=== PATIENT | male | born 1960 | race Asian ===

== ENCOUNTER 2018-01-07 15:01 | Inpatient (IN) | payer OTHER ==
[2018-01-07] MEDS ORDERED: ALBUTEROL SO4 8 GM HFA INHALER IH PRN (17:39)
[2018-01-07] MEDS ORDERED: IBUPROFEN 400 MG TABLET (FP) PO PRN (17:40)
[2018-01-07] MEDS ORDERED: NICOTINE POLACRILEX 2 MG GUM BC PRN (17:40)
[2018-01-07] MEDS ORDERED: guaiFENesin/D-METHORPHAN HB 10 ML UNIT-DOSE CUPS PO PRN (17:40)
[2018-01-07] MEDS ORDERED: MAG HYDROX/AL HYDROX/SIMETH 30 ML UNIT-DOSE CUP PO PRN (17:40)
[2018-01-07] MEDS ORDERED: ACETAMINOPHEN 325 MG TABLET (FP) PO PRN (17:40)
[2018-01-07] MEDS ORDERED: MAGNESIUM CITRATE 300 ML BOTTLE PO PRN (17:40)
[2018-01-07] MEDS ORDERED: MAGNESIUM HYDROX 2400MG/30ML ORAL SUSPENSION 30 ML CUP PO PRN (17:40)
[2018-01-07] MEDS ORDERED: MENTHOL/PHENOL 1 EACH UD MM PRN (17:40)
[2018-01-07] MEDS ORDERED: P-EPHED 60MG/TRIPROLIDI 2.5MG TABLET PO PRN (17:40)
[2018-01-07] MEDS ORDERED: LOPERAMIDE HCL 2 MG CAPSULE PO PRN (17:40)
[2018-01-07] MEDS ORDERED: ALBUTEROL SO4 0.083% IH SOL 2.5 MG/3 ML VIAL.NEB. NEB PRN (17:42)
--- NOTE | 2018-01-07 17:45 | HP ---
CIWA Score - CIWA Score Nausea/Vomitin-Mild Nausea/No Vomiting Muscle Tremors: 4-Moderate,w/Arms Extend Anxiety: 3 Agitation: 2 Paroxysmal Sweats: 2 Orientation: 0-Oriented Tacttile Disturbances: 1-Very Mild Itch/Numbness Auditory Disturbances: 0-None Visual Disturbances: 1-Very Mild Sensitivity Headache: 0-None Present CIWA-Ar Total Score: 14 Admission ROS [facility] - HPI Chief Complaint: alcohol withdrawal symptoms Allergies/Adverse Reactions: Allergies Allergy/AdvReac Type Severity Reaction Status Date / Time No Known Allergies Allergy Verified 09/08/15 10:51 History of Present Illness: 57 yo male with hx nicotine and alcohol is here seeking for detox and withdrawal symptoms. Last detox three years ago, does not recall the name of the facility. PMHX: asthma. Denies hx of seizures or blackouts. Denies suicidal / homicidal ideation. Reports no significant period of sobriety. Exam Limitations: No Limitations - Review of Systems Constitutional: Loss of Appetite, Changes in sleep, Weakness, Unexplained wgt Loss EENT: reports: Other (wears glasses for distance) Respiratory: reports: Wheezing Cardiac: reports: No Symptoms Reported GI: reports: Poor Appetite, Poor Fluid Intake : reports: No Symptoms Reported Musculoskeletal: reports: No Symptoms Reported Integumentary: reports: No Symptoms Reported Neuro: reports: Weakness Endocrine: reports: Increased Thirst Hematology: reports: No Symptoms Reported Psychiatric: reports: Orientated x3, Anxious Other Systems: Reviewed and Negative Patient History - Patient Medical History Hx Anemia: No Hx Asthma: Yes Hx Chronic Obstructive Pulmonary Disease (COPD): Yes Hx Cancer: No Hx Cardiac Disorders: No Hx Congestive Heart Failure: No Hx Hypertension: No Hx Hypercholesterolemia: No Hx Pacemaker: No HX Cerebrovascular Accident: No Hx Seizures: No Hx Dementia: No Hx Diabetes: No Hx Gastrointestinal Disorders: No Hx Liver Disease: No Hx Genitourinary Disorders: No Hx Sexually Transmitted Disorders: No Hx Renal Disease (ESRD): No Hx Thyroid Disease: No Hx Human Immunodeficiency Virus (HIV): No Hx Hepatitis C: No Hx Depression: No Hx Suicide Attempt: No Hx Bipolar Disorder: No Hx Schizophrenia: No - Patient Surgical History Past Surgical History: No - PPD History Previous Implant?: No Documented Results: Negative w/o proof Implanted On Prior [facility] Admission?: No PPD to be Administered?: Yes - Smoking Cessation Smoking history: Current every day smoker Have you smoked in the past 12 months: Yes Aproximately how many cigarettes per day: 10 Hx Chewing Tobacco Use: No Initiated information on smoking cessation: Yes 'Breaking Loose' booklet given: 01/07/18 - Substance & Tx. History Hx Alcohol Use: Yes Hx Substance Use: Yes Substance Use Type: Alcohol Hx Substance Use Treatment: Yes (Last detox three years ago, does not recall the name of the facility ) - Substances Abused Alcohol Route: Oral Frequency: Daily Amount used: 1 pint vodka Age of first use: 54 Date of Last Use: 01/07/18 Family Disease History - Family Disease History Family History: Unable to Obtain Admission Physical Exam [facility] - Physical General Appearance: Yes: Appropriately Dressed, Mild Distress, Alcohol on Breath , Thin, Tremorous, Sweating HEENTM: Yes: EOMI, Hearing grossly Normal, Normal ENT Inspection, Normocephalic , Normal Voice, KEITH, Pharynx Normal, Tm's normal Respiratory: Yes: Chest Non-Tender, No Respiratory Distress, No Accessory Muscle Use, Wheezing Neck: Yes: Within Normal Limits Breast: Yes: Breast Exam Deferred Cardiology: Yes: Regular Rhythm, Regular Rate Abdominal: Yes: Normal Bowel Sounds, Non Tender, Flat, Soft Genitourinary: Yes: Within Normal Limits Back: Yes: Normal Inspection Musculoskeletal: Yes: full range of Motion, Gait Steady, Pelvis Stable Extremities: Yes: Normal Capillary Refill, Normal Inspection, Normal Range of Motion, Non-Tender 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 NML intact, Fully Oriented, Alert, Motor Strength 5/5, Normal Response, Depressed Affect Integumentary: Yes: Normal Color, Warm, Diaphoresis Lymphatic: Yes: Within Normal Limits - Diagnostic (1) Alcohol dependence with withdrawal Current Visit: Yes Status: Acute (2) Nicotine dependence Current Visit: Yes Status: Acute (3) Asthma Current Visit: Yes Status: Chronic Qualifiers: Asthma severity: unspecified severity Asthma persistence: unspecified Asthma complication type: unspecified Qualified Code(s): J45.909 - Unspecified asthma, uncomplicated (4) Wheezing Current Visit: Yes Status: Acute Cleared for Admission S - Detox or Rehab S Level of Care: Medically Managed Detox Regimen/Protocol: Librium
[2018-01-07 17:46] VITALS: BMI 21.3
[2018-01-07] MEDS ORDERED: chlordiazePOXIDE HCL 25 MG CAPSULE PO ONE (18:15)
[2018-01-07] MEDS ORDERED: MELATONIN 5 MG TABLETS PO PRN (22:00)
[2018-01-07] MEDS: chlordiazePOXIDE HCL 25 MG CAPSULE PO SCH (22:22)
[2018-01-07] MEDS: THIAMINE HCL 100 MG TABLET (FP) PO SCH (22:22)
[2018-01-08 00:06] LABS: URINE APPEARANCE CLEAR; URINE BILIRUBIN NEGATIVE (<2.0 mg/dL); URINE COLOR YELLOW; URINE GLUCOSE (UA) NEGATIVE (NEGATIVE); URINE KETONE NEGATIVE (NEGATIVE); URINE LEUK ESTERASE NEGATIVE (NEGATIVE); URINE NITRITE NEGATIVE (NEGATIVE); URINE PROTEIN NEGATIVE (NEGATIVE); URINE UROBILINOGEN NEGATIVE mg/dL (0.2-1.0)
[2018-01-08] MEDS: chlordiazePOXIDE HCL 25 MG CAPSULE PO SCH ×4 (05:08→22:12)
[2018-01-08] MEDS ORDERED: ALBUTEROL SO4 2.5/IPRATROPIUM 0.5 INH SOL 3 ML VIAL.NEB. NEB ONE (09:04)
[2018-01-08] MEDS ORDERED: ALBUTEROL SO4 2.5/IPRATROPIUM 0.5 INH SOL 3 ML VIAL.NEB. NEB PRN (09:05)
[2018-01-08] MEDS: NICOTINE 14 MG/24 HOURS TOPICAL PATCH TD SCH (10:36)
[2018-01-08] MEDS: PRENATAL VITAMINS W/ FOLIC ACID TABLET (FP) PO SCH (10:36)
[2018-01-08 11:14] LABS: HEMATOCRIT 41.3 % (35.4-49); HEMOGLOBIN 13.9 GM/dL (11.7-16.9); MCH 35.2 pg (25.7-33.7); MCHC 33.7 g/dl (32.0-35.9); MEAN CELL VOLUME 104.5 fl (80-96); MEAN PLT VOLUME 9.9 fl (7.5-11.1); PLATELET COUNT 84 K/MM3 (134-434); RBC 3.95 M/mm3 (4.00-5.60); RDW 15.3 % (11.9-15.9); WHITE BLOOD COUNT 3.2 K/mm3 (4.0-10.0)
--- NOTE | 2018-01-08 11:26 | PN ---
[facility] CIWA - CIWA Score Nausea/Vomitin-No Nausea/No Vomiting Muscle Tremors: 5 Anxiety: 5 Agitation: 5 Paroxysmal Sweats: 1-Minimal Palms Moist Orientation: 0-Oriented Tacttile Disturbances: 0-None Auditory Disturbances: 0-None Visual Disturbances: 0-None Headache: 0-None Present CIWA-Ar Total Score: 16 S Progress Note (SOAP) Subjective: ANIETY,TREMORS,CHILLS,SOB/WHEEZING Objective: 01/08/18 11:22 Vital Signs 01/08/18 01/08/18 01/08/18 03:30 04:00 04:30 Temperature Pulse Rate 73 73 71 Respiratory 16 16 Rate Blood Pressure O2 Sat by Pulse Oximetry (%) 01/08/18 01/08/18 01/08/18 05:00 05:30 05:52 Temperature 98.1 F Pulse Rate 70 70 68 Respiratory 16 16 16 Rate Blood Pressure 136/82 O2 Sat by Pulse Oximetry (%) 01/08/18 01/08/18 01/08/18 06:00 06:30 07:00 Temperature Pulse Rate 68 65 68 Respiratory 16 18 18 Rate Blood Pressure O2 Sat by Pulse Oximetry (%) 01/08/18 01/08/18 01/08/18 07:30 08:00 08:28 Temperature Pulse Rate 68 70 72 Respiratory 18 18 18 Rate Blood Pressure O2 Sat by Pulse Oximetry (%) 01/08/18 01/08/18 01/08/18 09:00 09:08 09:30 Temperature Pulse Rate 76 93 H 80 Respiratory 18 18 Rate Blood Pressure O2 Sat by Pulse 94 L Oximetry (%) 01/08/18 10:41 Temperature 96.7 F L Pulse Rate 90 Respiratory 18 Rate Blood Pressure 124/75 O2 Sat by Pulse 94 Oximetry (%) Laboratory Tests 01/07/18 22:00 Urine Color Yellow Urine Appearance Clear Urine pH 7.0 Ur Specific [place] 1.012 Urine Protein Negative Urine Glucose (UA) Negative Urine Ketones Negative Urine Blood 1+ H Urine Nitrite Negative Urine Bilirubin Negative Urine Urobilinogen Negative Ur Leukocyte Esterase Negative Urine WBC (Auto) <1 Urine RBC (Auto) None UA NOTED OTHER LABS PENDING LUNGS:BILATERAL MODERATE WHEEZE WITH RHONCHI ALL [place] PULSE OX : 94% ROOM AIR Assessment: 01/08/18 11:23 WITHDRAWAL SX Plan: CONTINUE DETOX DUO NEB NEBULIZER TX DIRECTED, FIRST TX NOW GIVEN PULSE OX QID AND NEEDED
[2018-01-08] MEDS ORDERED: predniSONE 20 MG TABLET (UD) PO ONE ×2 (11:29→13:00)
[2018-01-08 11:31] LABS: CHLORIDE 102 mmol/L (98-107); POTASSIUM 3.4 mmol/L (3.5-5.1); SODIUM 145 mmol/L (136-145)
[2018-01-08 11:58] LABS: ALBUMIN 3.7 g/dl (3.4-5.0); ALK PHOS 74 U/L (45-117); ANION GAP 13 MMOL/L (8-16); BILIRUBIN,TOTAL 0.6 mg/dL (0.2-1.0); BLOOD UREA NITROGEN 10 mg/dL (7-18); CALCIUM 9.1 mg/dL (8.5-10.1); CO2 30 mmol/L (21-32); CREATININE 0.5 mg/dL (0.7-1.3); GLUCOSE,RANDOM 81 mg/dL (74-106); SGOT/AST 342 U/L (15-37); SGPT/ALT 211 U/L (12-78)
[2018-01-08] MEDS: chlordiazePOXIDE HCL 25 MG CAPSULE PO PRN (12:55)
[2018-01-08] MEDS: ALBUTEROL SO4 2.5/IPRATROPIUM 0.5 INH SOL 3 ML VIAL.NEB. NEB SCH ×3 (12:59→20:50)
--- NOTE | 2018-01-08 14:17 | CONSULT ---
[facility] Psychiatric Consult - Data Date of interview: 01/08/18 Admission source: [facility] Identifying data: Readmission to [facility] for this male seeking detox treatment on for alcohol dependence.Patient is ,a father of three ,domiciled and currently employed. Substance Abuse History: Discussed in this session.Patient confirms an extensive history of alcohol dependence.Smoking history: Current every day smoker. Have you smoked in the past 12 months: Yes. Aproximately how many cigarettes per day: 10. Hx Chewing Tobacco Use: No. Initiated information on smoking cessation: Yes. 'Breaking Loose' booklet given: 01/07/18. - Substance & Tx. History. Hx Alcohol Use: Yes. Hx Substance Use: Yes. Substance Use Type : Alcohol. Hx Substance Use Treatment: Yes (Last detox three years ago, does not recall the name of the facility ). - Substances Abused. Alcohol. Route : Oral. Frequency: Daily. Amount used: 1 pint vodka. Age of first use: 54. Date of Last Use: 01/07/18 Medical History: Bronchial asthma,antecedent of herniorraphy and a history of kidney stones. Psychiatric History: Patient denies. Physical/Sexual Abuse/Trauma History: No reported history of abuse. Additional Comment: No toxicology available on admission. Mental Status Exam - Mental Status Exam Alert and Oriented to: Time, Place, Person Cognitive Function: Good Patient Appearance: Well Groomed (thin habitus) Mood: Withdrawn, Anxious Affect: Mood Congruent, Constricted Patient Behavior: Sedated (shaking), Fatigued, Cooperative Speech Pattern: Delayed, Slurred Voice Loudness: Moderately Soft/Quiet Thought Process: Goal Oriented Thought Disorder: Not Present Hallucinations: Denies Suicidal Ideation: Denies Homicidal Ideation: Denies Insight/Judgement: Fair Sleep: Fair Appetite: Poor, Weight loss Muscle strength/Tone: Normal Gait/Station: Other (unsteady gait) Psychiatric Findings - Problem List (Berger 1, 2,3) (1) Alcohol dependence with withdrawal Current Visit: Yes Status: Acute (2) Nicotine dependence Current Visit: Yes Status: Acute Qualifiers: Nicotine product type: cigarettes Substance use status: in withdrawal Qualified Code(s): F17.213 - Nicotine dependence, cigarettes, with withdrawal - Initial Treatment Plan Initial Treatment Plan: Psychoeducation.Detoxification.Falls precautions.Observation.
--- NOTE | 2018-01-08 20:20 | EKG ---
Test Reason : Blood Pressure : / mmHG Vent. Rate : 069 BPM Atrial Rate : 069 BPM P-R Int : 168 ms QRS Dur : 096 ms QT Int : 428 ms P-R-T Axes : 000 131 104 degrees QTc Int : 458 ms SUSPECT ARM LEAD REVERSAL, INTERPRETATION ASSUMES NO REVERSAL NORMAL SINUS RHYTHM SEPTAL INFARCT , AGE UNDETERMINED LATERAL INFARCT , AGE UNDETERMINED ABNORMAL ECG NO PREVIOUS ECGS AVAILABLE Confirmed by AMPARO JANG MD ([id number]) on 01/08/2018 8:19:27 PM Referred By: Confirmed By:AMPARO JANG MD
[2018-01-08] MEDS ORDERED: cloNIDine HCL 0.1 MG TABLET PO ONE (21:13)
--- NOTE | 2018-01-08 21:26 | PN ---
S Progress Note Note: Vital Signs Temperature 98.8 F 01/08/18 18:02 Pulse Rate 90 01/08/18 19:00 Respiratory Rate 20 01/08/18 19:00 Blood Pressure 161/99 01/08/18 21:16 O2 Sat by Pulse Oximetry (%) 95 01/08/18 13:10 clonidine 0.1 mg ordered increase fluids continue to monitor
--- NOTE | 2018-01-08 21:59 | PN ---
[facility] Progress Note Note: Potassium 3.4 repeat potassium in AM continue to monitor
[2018-01-08] MEDS: THIAMINE HCL 100 MG TABLET (FP) PO SCH (22:13)
[2018-01-09] MEDS: chlordiazePOXIDE HCL 25 MG CAPSULE PO SCH ×3 (05:17→17:31)
[2018-01-09] MEDS: NICOTINE 14 MG/24 HOURS TOPICAL PATCH TD SCH (10:27)
[2018-01-09] MEDS: PRENATAL VITAMINS W/ FOLIC ACID TABLET (FP) PO SCH (10:27)
[2018-01-09] MEDS: ALBUTEROL SO4 2.5/IPRATROPIUM 0.5 INH SOL 3 ML VIAL.NEB. NEB SCH ×4 (10:29→20:40)
[2018-01-09] MEDS ORDERED: predniSONE 20 MG TABLET (UD) PO ONE (12:20)
[2018-01-09] MEDS ORDERED: POTASSIUM CHLORIDE TABS 20 MEQ TABLET.ER (FP) PO ONE (12:21)
--- NOTE | 2018-01-09 12:23 | PN ---
S CIWA - CIWA Score Nausea/Vomitin-No Nausea/No Vomiting Muscle Tremors: 4-Moderate,w/Arms Extend Anxiety: 4-Mod. Anxious/Guarded Agitation: 3 Paroxysmal Sweats: 1-Minimal Palms Moist Orientation: 0-Oriented Tacttile Disturbances: 0-None Auditory Disturbances: 0-None Visual Disturbances: 0-None Headache: 0-None Present CIWA-Ar Total Score: 12 S Progress Note (SOAP) Subjective: ANXIETY,TREMORS LESS THAN PREVIOUS DAY, DENIES SOB THIS MORNING. SAW PT EATING BREAKFATS AT BEDSIDE. NAD. Objective: 01/09/18 12:18 Vital Signs 01/09/18 01/09/18 01/09/18 06:15 06:30 11:07 Temperature 97.6 F 96.9 F L Pulse Rate 76 68 Respiratory 18 18 16 Rate Blood Pressure 118/78 130/79 Laboratory Tests 01/07/18 01/08/18 01/08/18 22:00 07:16 07:16 WBC 3.2 L RBC 3.95 L Hgb 13.9 Hct 41.3 MCV 104.5 H MCH 35.2 H MCHC 33.7 RDW 15.3 Plt Count 84 L D MPV 9.9 D Manual Slide Review Platelet Comment Giant platelets Sodium 145 Potassium 3.4 L Chloride 102 Carbon Dioxide 30 Anion Gap 13 BUN 10 Creatinine 0.5 L Creat Clearance w eGFR > 60 Random Glucose 81 Calcium 9.1 Total Bilirubin 0.6 AST 342 H D ALT 211 H D Alkaline Phosphatase 74 Total Protein 7.0 Albumin 3.7 Urine Color Yellow Urine Appearance Clear Urine pH 7.0 Ur Specific [place] 1.012 Urine Protein Negative Urine Glucose (UA) Negative Urine Ketones Negative Urine Blood 1+ H Urine Nitrite Negative Urine Bilirubin Negative Urine Urobilinogen Negative Ur Leukocyte Esterase Negative Urine WBC (Auto) <1 Urine RBC (Auto) None RPR Titer 01/08/18 01/09/18 07:16 07:00 WBC RBC Hgb Hct MCV MCH MCHC RDW Plt Count MPV Manual Slide Review Platelet Comment Sodium Potassium 3.5 Chloride Carbon Dioxide Anion Gap BUN Creatinine Creat Clearance w eGFR Random Glucose Calcium Total Bilirubin AST ALT Alkaline Phosphatase Total Protein Albumin Urine Color Urine Appearance Urine pH Ur Specific [place] Urine Protein Urine Glucose (UA) Urine Ketones Urine Blood Urine Nitrite Urine Bilirubin Urine Urobilinogen Ur Leukocyte Esterase Urine WBC (Auto) Urine RBC (Auto) RPR Titer Nonreactive K+ =3.4 LUNGS: CLEAR TO A/P Assessment: 01/09/18 12:18 WITHDRAWAL SX BORDERLINE HYPOKALEMIA Plan: CONTINUE DETOX REPEAT CBC AND CMP;INR IN AM. KDUR 20 MEQ PO BID
[2018-01-09] MEDS: chlordiazePOXIDE HCL 25 MG CAPSULE PO PRN ×2 (14:13→20:43)
[2018-01-09] MEDS: THIAMINE HCL 100 MG TABLET (FP) PO SCH (22:18)
[2018-01-09] MEDS: POTASSIUM CHLORIDE TABS 20 MEQ TABLET.ER (FP) PO SCH (22:18)
[2018-01-09] MEDS: chlordiazePOXIDE 5 MG CAPSULE PO SCH (22:18)
[2018-01-10] MEDS: chlordiazePOXIDE 5 MG CAPSULE PO SCH ×2 (05:40→10:33)
[2018-01-10 10:07] LABS: HEMATOCRIT 42.7 % (35.4-49); HEMOGLOBIN 14.2 GM/dL (11.7-16.9); MCHC 33.3 g/dl (32.0-35.9); MEAN CELL VOLUME 104.9 fl (80-96); MEAN PLT VOLUME 10.7 fl (7.5-11.1); PLATELET COUNT 81 K/MM3 (134-434); RBC 4.07 M/mm3 (4.00-5.60); RDW 14.9 % (11.9-15.9); WHITE BLOOD COUNT 6.2 K/mm3 (4.0-10.0)
[2018-01-10 10:15] LABS: CALCIUM 11.1 mg/dL (8.5-10.1); CHLORIDE 100 mmol/L (98-107); POTASSIUM 4.2 mmol/L (3.5-5.1); SODIUM 139 mmol/L (136-145)
[2018-01-10 10:16] LABS: INR 0.94 (0.83-1.09); PROTHROMBIN TIME (PATIENT) 10.6 SEC (9.7-13.0)
[2018-01-10 10:22] LABS: ALBUMIN 4.4 g/dl (3.4-5.0); ALK PHOS 89 U/L (45-117); ANION GAP 10 MMOL/L (8-16); BILIRUBIN,TOTAL 0.9 mg/dL (0.2-1.0); BLOOD UREA NITROGEN 11 mg/dL (7-18); CO2 29 mmol/L (21-32); CREATININE 0.6 mg/dL (0.7-1.3); GLUCOSE,RANDOM 88 mg/dL (74-106); SGOT/AST 354 U/L (15-37); SGPT/ALT 264 U/L (12-78); TOT PROT 8.3 g/dl (6.4-8.2)
[2018-01-10] MEDS: ALBUTEROL SO4 2.5/IPRATROPIUM 0.5 INH SOL 3 ML VIAL.NEB. NEB SCH ×3 (10:34→22:55)
[2018-01-10] MEDS: PRENATAL VITAMINS W/ FOLIC ACID TABLET (FP) PO SCH (10:34)
[2018-01-10] MEDS: POTASSIUM CHLORIDE TABS 20 MEQ TABLET.ER (FP) PO SCH (10:34)
[2018-01-10] MEDS: NICOTINE 14 MG/24 HOURS TOPICAL PATCH TD SCH (10:34)
--- NOTE | 2018-01-10 11:50 | PN ---
S Progress Note (SOAP) Subjective: TREMORS, ANXIETY, IRRITABILITY. DENIES SOB. PT REPORTS FATIGUE AND SLIGHT UNSTABLE GAIT FROM "LIBRIUM". PT WAS VERY ANXIOUS TO LEAVE TREATMENT THIS MORNING STATING HIS IS WAITING IN THE PARKING LOT TO PICK HIM UP. ON SEVERAL OCCASIONS HE TRIED TO EXIT THE UNIT AND TRIGGERED THE BACK ALARM DOOR ON ONE INSTANT. PT WAS ENCOURAGED TO STAY TILL TREATMENT IS OVER TOMORROW. FORMATION FRACTURING OPERATOR, TOPHER ANDREA GOT AHOLD OF THE WHO IS NOT IN SUPPORT OF PATIENT LEAVING TODAY PREMATURELY. THIS ENVIRONMENTAL TEST TECHNICIAN SPOKE TO PT'S WHO WILL PICK PATIENT UP IF AND WHEN DISCHARGED IN THE MORNING. PT WILL FOLLOW UP WITH HIS PRIMARY CARE PROVIDER, DR. DAVILA FOR MEDICAL MANAGEMENT. Objective: 01/10/18 11:50 Vital Signs 01/10/18 01/10/18 06:17 09:11 Temperature 97.3 F L 97.1 F L Pulse Rate 84 99 H Respiratory 16 18 Rate Blood Pressure 136/80 134/100 Laboratory Tests 01/07/18 01/08/18 01/08/18 22:00 07:16 07:16 WBC 3.2 L RBC 3.95 L Hgb 13.9 Hct 41.3 MCV 104.5 H MCH 35.2 H MCHC 33.7 RDW 15.3 Plt Count 84 L D MPV 9.9 D Manual Slide Review Platelet Comment Giant platelets PT with INR INR Sodium 145 Potassium 3.4 L Chloride 102 Carbon Dioxide 30 Anion Gap 13 BUN 10 Creatinine 0.5 L Creat Clearance w eGFR > 60 Random Glucose 81 Calcium 9.1 Total Bilirubin 0.6 AST 342 H D ALT 211 H D Alkaline Phosphatase 74 Total Protein 7.0 Albumin 3.7 Urine Color Yellow Urine Appearance Clear Urine pH 7.0 Ur Specific [place] 1.012 Urine Protein Negative Urine Glucose (UA) Negative Urine Ketones Negative Urine Blood 1+ H Urine Nitrite Negative Urine Bilirubin Negative Urine Urobilinogen Negative Ur Leukocyte Esterase Negative Urine WBC (Auto) <1 Urine RBC (Auto) None RPR Titer 01/08/18 01/09/18 01/10/18 07:16 07:00 07:00 WBC RBC Hgb Hct MCV MCH MCHC RDW Plt Count MPV Manual Slide Review Platelet Comment PT with INR INR Sodium 139 Potassium 3.5 4.2 Chloride 100 Carbon Dioxide 29 Anion Gap 10 BUN 11 Creatinine 0.6 L Creat Clearance w eGFR > 60 Random Glucose 88 Calcium 11.1 H D Total Bilirubin 0.9 AST 354 H ALT 264 H D Alkaline Phosphatase 89 D Total Protein 8.3 H Albumin 4.4 Urine Color Urine Appearance Urine pH Ur Specific [place] Urine Protein Urine Glucose (UA) Urine Ketones Urine Blood Urine Nitrite Urine Bilirubin Urine Urobilinogen Ur Leukocyte Esterase Urine WBC (Auto) Urine RBC (Auto) RPR Titer Nonreactive 01/10/18 01/10/18 07:00 07:00 WBC 6.2 RBC 4.07 Hgb 14.2 Hct 42.7 MCV 104.9 H MCH 35.0 H MCHC 33.3 RDW 14.9 Plt Count 81 L MPV 10.7 Manual Slide Review Platelet Comment PT with INR 10.60 INR 0.94 Sodium Potassium Chloride Carbon Dioxide Anion Gap BUN Creatinine Creat Clearance w eGFR Random Glucose Calcium Total Bilirubin AST ALT Alkaline Phosphatase Total Protein Albumin Urine Color Urine Appearance Urine pH Ur Specific [place] Urine Protein Urine Glucose (UA) Urine Ketones Urine Blood Urine Nitrite Urine Bilirubin Urine Urobilinogen Ur Leukocyte Esterase Urine WBC (Auto) Urine RBC (Auto) RPR Titer LUNGS:CLEAR TO AUSCULTATE-NO WHEEZE OR RHONCHI NOTED. Assessment: 01/10/18 11:50 WITHDRAWAL SX Plan: CONTINUE DETOX INCREASE PO FLUIDS AMMONIA LEVEL TODAY
[2018-01-10] MEDS ORDERED: predniSONE 10 MG TABLET (UD) PO ONE (12:00)
--- NOTE | 2018-01-10 14:38 | PN ---
[facility] Progress Note Note: REPEAT LABS K+ =4.2 CORRECTED AMMONIA LEVEL 18 WNL LIVER ENZYMES NOT IMPROVED. COPY OF LAB GIVEN TO PATIENT FOR HIS PMD, DR ROXANNA V.
[2018-01-10] MEDS: THIAMINE HCL 100 MG TABLET (FP) PO SCH (22:55)
[2018-01-10] MEDS ORDERED: chlordiazePOXIDE HCL 10 MG CAPSULE PO SCH (23:00)
[2018-01-11 09:32] VITALS: BP 109/75; PULSE 84; TEMP 97.4
--- NOTE | 2018-01-11 20:18 | PN ---
[facility] Progress Note (SOAP) Subjective: Tremors noted on patient. Patient denies any other current withdrawal symptoms at this time. Objective: PATIENT A & O X 3, OBSERVED AMBULATING ON UNIT. NO ACUTE DISTRESS. Vital Signs Temperature 97.4 F L 01/11/18 09:31 Pulse Rate 84 01/11/18 09:31 Respiratory Rate 18 01/11/18 09:31 Blood Pressure 109/75 01/11/18 09:31 O2 Sat by Pulse Oximetry (%) 95 01/08/18 13:10 Laboratory Tests 01/07/18 01/08/18 01/08/18 22:00 07:16 07:16 WBC 3.2 L RBC 3.95 L Hgb 13.9 Hct 41.3 MCV 104.5 H MCH 35.2 H MCHC 33.7 RDW 15.3 Plt Count 84 L D MPV 9.9 D Manual Slide Review Platelet Comment Giant platelets PT with INR INR Sodium 145 Potassium 3.4 L Chloride 102 Carbon Dioxide 30 Anion Gap 13 BUN 10 Creatinine 0.5 L Creat Clearance w eGFR > 60 Random Glucose 81 Calcium 9.1 Total Bilirubin 0.6 AST 342 H D ALT 211 H D Alkaline Phosphatase 74 Ammonia Total Protein 7.0 Albumin 3.7 Urine Color Yellow Urine Appearance Clear Urine pH 7.0 Ur Specific [place] 1.012 Urine Protein Negative Urine Glucose (UA) Negative Urine Ketones Negative Urine Blood 1+ H Urine Nitrite Negative Urine Bilirubin Negative Urine Urobilinogen Negative Ur Leukocyte Esterase Negative Urine WBC (Auto) <1 Urine RBC (Auto) None RPR Titer 01/08/18 01/09/18 01/10/18 07:16 07:00 07:00 WBC RBC Hgb Hct MCV MCH MCHC RDW Plt Count MPV Manual Slide Review Platelet Comment PT with INR INR Sodium 139 Potassium 3.5 4.2 Chloride 100 Carbon Dioxide 29 Anion Gap 10 BUN 11 Creatinine 0.6 L Creat Clearance w eGFR > 60 Random Glucose 88 Calcium 11.1 H D Total Bilirubin 0.9 AST 354 H ALT 264 H D Alkaline Phosphatase 89 D Ammonia Total Protein 8.3 H Albumin 4.4 Urine Color Urine Appearance Urine pH Ur Specific [place] Urine Protein Urine Glucose (UA) Urine Ketones Urine Blood Urine Nitrite Urine Bilirubin Urine Urobilinogen Ur Leukocyte Esterase Urine WBC (Auto) Urine RBC (Auto) RPR Titer Nonreactive 01/10/18 01/10/18 01/10/18 07:00 07:00 11:30 WBC 6.2 RBC 4.07 Hgb 14.2 Hct 42.7 MCV 104.9 H MCH 35.0 H MCHC 33.3 RDW 14.9 Plt Count 81 L MPV 10.7 Manual Slide Review Platelet Comment PT with INR 10.60 INR 0.94 Sodium Potassium Chloride Carbon Dioxide Anion Gap BUN Creatinine Creat Clearance w eGFR Random Glucose Calcium Total Bilirubin AST ALT Alkaline Phosphatase Ammonia 18.0 Total Protein Albumin Urine Color Urine Appearance Urine pH Ur Specific [place] Urine Protein Urine Glucose (UA) Urine Ketones Urine Blood Urine Nitrite Urine Bilirubin Urine Urobilinogen Ur Leukocyte Esterase Urine WBC (Auto) Urine RBC (Auto) RPR Titer LABS NOTED. 01/11/18 20:16 Assessment: 01/11/18 20:17 COMPLETION OF DETOX REGIMEN. Plan: PATIENT SCHEDULED FOR DISCHARGE FROM DETOX UNIT TODAY.
--- NOTE | 2018-01-11 20:22 | DS ---
[facility] Detox Discharge Summary Admission Date: 01/07/18 Discharge Date: 01/11/18 - History Present History: Alcohol Dependence Additional Comments: PATIENT GONIG HOME, ADVISED TO CONSIDER LOCAL 12-STEP/AA OUTPATIENT SUPPORT GROUPS FOR AFTERCARE. COPIES OF ALL LABS DRAWN WHILE ADMITTED FOR DETOX GIVEN TO PATIENT PRIOR TO TIME OF DISCHARGE FROM DETOX UNIT. PATIENT ADVISED TO FOLLOW -UP WITH MEDICAL PROVIDER DR. DAVILA AFTER DISCHARGE FROM DETOX FOR FOLLOW-UP MEDICAL EVALUATION. PATIENT WAS DISCHARGED FROM DETOX UNIT IN STABLE MEDICAL CONDITION. PATIENT WAS ESCORTED BY [facility] MEDICAL STAFF MEMBER DIRECTLY DOWN TO [facility], WHERE PATIENT WAS PICKED UP BY HIS . Pertinent Past History: Asthma, C.O.P.D., Nicotine Dependence, Hypokalemia. - Physical Exam Results Vital Signs: Vital Signs Temperature 97.4 F L 01/11/18 09:31 Pulse Rate 84 01/11/18 09:31 Respiratory Rate 18 01/11/18 09:31 Blood Pressure 109/75 01/11/18 09:31 O2 Sat by Pulse Oximetry (%) 95 01/08/18 13:10 Pertinent Admission Physical Exam Findings: WITHDRAWAL SYMPTOMS. Laboratory Tests 01/07/18 01/08/18 01/08/18 22:00 07:16 07:16 WBC 3.2 L RBC 3.95 L Hgb 13.9 Hct 41.3 MCV 104.5 H MCH 35.2 H MCHC 33.7 RDW 15.3 Plt Count 84 L D MPV 9.9 D Manual Slide Review Platelet Comment Giant platelets PT with INR INR Sodium 145 Potassium 3.4 L Chloride 102 Carbon Dioxide 30 Anion Gap 13 BUN 10 Creatinine 0.5 L Creat Clearance w eGFR > 60 Random Glucose 81 Calcium 9.1 Total Bilirubin 0.6 AST 342 H D ALT 211 H D Alkaline Phosphatase 74 Ammonia Total Protein 7.0 Albumin 3.7 Urine Color Yellow Urine Appearance Clear Urine pH 7.0 Ur Specific [place] 1.012 Urine Protein Negative Urine Glucose (UA) Negative Urine Ketones Negative Urine Blood 1+ H Urine Nitrite Negative Urine Bilirubin Negative Urine Urobilinogen Negative Ur Leukocyte Esterase Negative Urine WBC (Auto) <1 Urine RBC (Auto) None RPR Titer 01/08/18 01/09/18 01/10/18 07:16 07:00 07:00 WBC RBC Hgb Hct MCV MCH MCHC RDW Plt Count MPV Manual Slide Review Platelet Comment PT with INR INR Sodium 139 Potassium 3.5 4.2 Chloride 100 Carbon Dioxide 29 Anion Gap 10 BUN 11 Creatinine 0.6 L Creat Clearance w eGFR > 60 Random Glucose 88 Calcium 11.1 H D Total Bilirubin 0.9 AST 354 H ALT 264 H D Alkaline Phosphatase 89 D Ammonia Total Protein 8.3 H Albumin 4.4 Urine Color Urine Appearance Urine pH Ur Specific [place] Urine Protein Urine Glucose (UA) Urine Ketones Urine Blood Urine Nitrite Urine Bilirubin Urine Urobilinogen Ur Leukocyte Esterase Urine WBC (Auto) Urine RBC (Auto) RPR Titer Nonreactive 01/10/18 01/10/18 01/10/18 07:00 07:00 11:30 WBC 6.2 RBC 4.07 Hgb 14.2 Hct 42.7 MCV 104.9 H MCH 35.0 H MCHC 33.3 RDW 14.9 Plt Count 81 L MPV 10.7 Manual Slide Review Platelet Comment PT with INR 10.60 INR 0.94 Sodium Potassium Chloride Carbon Dioxide Anion Gap BUN Creatinine Creat Clearance w eGFR Random Glucose Calcium Total Bilirubin AST ALT Alkaline Phosphatase Ammonia 18.0 Total Protein Albumin Urine Color Urine Appearance Urine pH Ur Specific [place] Urine Protein Urine Glucose (UA) Urine Ketones Urine Blood Urine Nitrite Urine Bilirubin Urine Urobilinogen Ur Leukocyte Esterase Urine WBC (Auto) Urine RBC (Auto) RPR Titer LABS NOTED. - Treatment Hospital Course: Detox Protocol Followed, Detoxed Safely, Responded well, Discharged Condition Good Patient has Accepted a Rehab Referral to: PATIENT ADVISED TO CONSIDER LOCAL 12- STEP/AA OUTPATIENT SUPPORT GROUPS. - Medication Discharge Medications: Ambulatory Orders Ipratropium/Albuterol Sulfate [Combivent Respimat Inhal [place]] 4 gm IH BID 09/07 Albuterol Sulfate Inhaler - [Ventolin Hfa Inhaler -] 2 inh PO Q4H PRN #1 inhaler 01/11/18 - Diagnosis (1) Alcohol dependence with uncomplicated withdrawal Status: Acute (2) Asthma Status: Acute Qualifiers: Asthma severity: mild intermittent Asthma complication type: uncomplicated Qualified Code(s): J45.20 - Mild intermittent asthma, uncomplicated (3) Hypokalemia Status: Acute (4) Nicotine dependence Status: Acute Qualifiers: Nicotine product type: cigarettes Substance use status: uncomplicated Qualified Code(s): F17.210 - Nicotine dependence, cigarettes, uncomplicated (5) Wheezing Status: Acute (6) COPD (chronic obstructive pulmonary disease) Status: Chronic Qualifiers: COPD type: COPD with acute exacerbation Qualified Code(s): J44.1 - Chronic obstructive pulmonary disease with (acute) exacerbation - AMA Did Patient Leave Against Medical Advice: No
== END 2018-01-11 09:38 | disposition home or self-care (01) | DRG 897 ==
LOC: YASAS 15:01 → Y3N 17:50 → MERGE 17:50
PROVIDERS: ADMIT Surgery; ATTEND Surgery
PROC: HZ2ZZZZ Detoxification Services for Substance Abuse Treatment (ICD-10-PCS; principal; 2018-01-07)
DX: F10.230 Alcohol dependence with withdrawal, uncomplicated (principal); J44.1 Chronic obstructive pulmonary disease with (acute) exacerbation; F17.210 Nicotine dependence, cigarettes, uncomplicated; J45.20 Mild intermittent asthma, uncomplicated; E87.6 Hypokalemia
CPT/HCPCS: 36415; 80053; 81003; 81015; 82140; 84132; 85027; 85610; 86593; 93005; 93010; 94640; J0735; J7620

== ENCOUNTER 2018-08-11 19:17 | Emergency (ER) | payer OTHER ==
[2018-08-11 19:42] VITALS: BP 138/98; BMI 21.3
--- NOTE | 2018-08-11 22:21 | PDOC ---
*Physical Exam - Vital Signs Last Vital Signs Temp Pulse Resp BP Pulse Ox 138/98 98 08/11/18 19:38 08/11/18 19:38 Medical Decision Making - Medical Decision Making 08/11/18 22:20 Patient seen by the advanced practice provider under my direct supervision. Ancillary testing reviewed as necessary. I agree with plan as outlined by the advanced practice provider. *DC/Admit/Observation/Transfer Diagnosis at time of Disposition: Alcohol abuse - Discharge Dispostion Disposition: HOME - Referrals - Patient Instructions Printed Discharge Instructions: DI for Alcohol Abuse - Post Discharge Activity
[2018-08-11] MEDS ORDERED: chlordiazePOXIDE HCL 25 MG CAPSULE PO ONE (22:37)
--- NOTE | 2018-08-11 22:37 | PDOC ---
History of Present Illness - General Chief Complaint: Alcohol intoxication Stated Complaint: ALCOHOL DETOX Time Seen by Provider: 08/11/18 22:19 History Source: Patient - History of Present Illness Initial Comments: 08/11/18 22:28 57 year old male history of alcoholism relapsed and has been drinking for the last 6 months. patient reports drinking karoline ay 5pm. no slurred speech , no tremors noted. 08/11/18 22:38 Past History - Past Medical History Allergies/Adverse Reactions: Allergies Allergy/AdvReac Type Severity Reaction Status Date / Time No Known Allergies Allergy Verified 09/08/15 20:32 Home Medications: Ambulatory Orders Ipratropium/Albuterol Sulfate [Combivent Respimat Inhal [place]] 4 gm IH BID 09/07 Albuterol Sulfate Inhaler - [Ventolin Hfa Inhaler -] 2 inh PO Q4H PRN #1 inhaler 01/11/18 Anemia: No Asthma: Yes Cancer: No Cardiac Disorders: No CVA: No COPD: Yes CHF: No Dementia: No Diabetes: No GI Disorders: No Disorders: No HTN: No Hypercholesterolemia: No Kidney Stones: Yes (Tx in 2016) Liver Disease: No Seizures: No Thyroid Disease: No - Surgical History Abdominal Surgery: Yes (HERNIA REPAIR 10 YRS AGO) Appendectomy: No Cardiac Surgery: No Cholecystectomy: No Lung Surgery: No Neurologic Surgery: No Orthopedic Surgery: No - Reproductive History Testicular Surgery: No - Suicide/Smoking/Psychosocial Hx Smoking History: Current every day smoker Have you smoked in the past 12 months: Yes Number of Cigarettes Smoked Daily: 10 Information on smoking cessation initiated: No 'Breaking Loose' booklet given: 01/07/18 Hx Alcohol Use: Yes Drug/Substance Use Hx: No Substance Use Type: Alcohol Hx Substance Use Treatment: Yes (Last detox three years ago, does not recall the name of the facility ) Review of Systems - Review of Systems Able to Perform ROS?: Yes Is the patient limited Amharic proficient: No Constitutional: No: Symptoms Reported, See HPI, Chills, Diaphoresis, Fever, Loss of Appetite, Malaise, Night Sweats, Weakness, Weight Stable, Unintentional Wgt. Loss, Unexplained wgt Loss, Other Neurological: No: Symptoms reported, See HPI, Headache, Numbness, Paresthesia, Pre-Existing Deficit, Seizure, Tingling, Tremors, Weakness, Unsteady Gait, Ataxia, Dizziness, Other Psychiatric: No: Anxiety, Depression, Frequent Crying, Stressors, Sleep Pattern Change, Emotional Problems, Mood Swings, Change in Appetite, Other *Physical Exam - Vital Signs Last Vital Signs Temp Pulse Resp BP Pulse Ox 138/98 98 08/11/18 19:38 08/11/18 19:38 - Physical Exam General Appearance: Yes: Appropriately Dressed Respiratory/Chest: positive: Lungs Clear, Normal Breath Sounds Cardiovascular: positive: Regular Rhythm, Regular Rate. negative: Tachycardia Gastrointestinal/Abdominal: positive: Normal Bowel Sounds, Soft Neurologic: positive: Fully Oriented, Alert, Normal Mood/Affect, Other (no tremors) Medical Decision Making - Medical Decision Making 08/11/18 22:39 A: called [facility] detox. no bed available. patient given option to wait for detox in the am. patient refused. patient also refused librium. reports that he will go there in the morning. *DC/Admit/Observation/Transfer Diagnosis at time of Disposition: Alcohol abuse - Discharge Dispostion Disposition: HOME - Referrals - Patient Instructions Printed Discharge Instructions: DI for Alcohol Abuse - Post Discharge Activity
[2018-08-11] MEDS ORDERED: chlordiazePOXIDE HCL 25 MG CAPSULE ONE (22:42)
== END 2018-08-11 22:50 | disposition home or self-care (01) ==
LOC: JER 19:17
DX: F10.10 Alcohol abuse, uncomplicated (principal); J44.9 Chronic obstructive pulmonary disease, unspecified; J45.909 Unspecified asthma, uncomplicated
CPT/HCPCS: 99282-25

== ENCOUNTER 2018-08-12 14:30 | Inpatient (IN) | payer OTHER ==
[2018-08-12 17:12] VITALS: BMI 19.0
--- NOTE | 2018-08-12 17:24 | HP ---
CIWA Score Nausea/Vomitin-Mild Nausea/No Vomiting Muscle Tremors: 2 Anxiety: 1-Mildly Anxious Agitation: 1-Slight > Activity Paroxysmal Sweats: 2 Orientation: 3-Disoriented Date>2 days Tacttile Disturbances: 1-Very Mild Itch/Numbness Auditory Disturbances: 1-Very Mild Visual Disturbances: 1-Very Mild Sensitivity Headache: 1-Very Mild CIWA-Ar Total Score: 14 - Admission Criteria OASAS Guidelines: Admission for Medically Managed Detox: Requires at least one of the followin. CIWA greater than 12 2. Seizures within the past 24 hours 3. Delirium tremens within the past 24 hours 4. Hallucinations within the past 24 hours 5. Acute intervention needed for co occurring medical disorder 6. Acute intervention needed for co occurring psychiatric disorder 7. Severe withdrawal that cannot be handled at a lower level of care (continued vomiting, continued diarrhea, abnormal vital signs) requiring intravenous medication and/or fluids 8. Admission ROS S - [facility] Chief Complaint: WITHDRAWAL SYMPTOMS Allergies/Adverse Reactions: Allergies Allergy/AdvReac Type Severity Reaction Status Date / Time No Known Allergies Allergy Verified 09/08/15 20:32 History of Present Illness: 57 Y.O. MAN WITH AN EXTENSIVE HISTORY OF ALCOHOL DEPENDENCE IS HERE SEEKING DETOX SERVICES. HE WAS LAST ADMITTED HERE FOR DETOX ON 12/2017. HE WAS DISCHARGED FROM [facility] ON 08/10/18 FOR ETOH INTOXICATION. DOES NOT HAVE A SIGNIFICANT PERIOD OF SOBRIETY. Exam Limitations: No Limitations - Ebola screening Have you traveled outside of the country in the last 21 days: No Have you had contact with anyone from an Ebola affected area: No Have you been sick,other than usual withdrawal symptoms: No Do you have a fever: No - Review of Systems Constitutional: Loss of Appetite, Unexplained wgt Loss EENT: reports: Blurred Vision Respiratory: reports: Shortness of Breath Cardiac: reports: No Symptoms Reported GI: reports: No Symptoms Reported : reports: No Symptoms Reported Musculoskeletal: reports: No Symptoms Reported Integumentary: reports: No Symptoms Reported Neuro: reports: No Symptoms reported Endocrine: reports: No Symptoms Reported Hematology: reports: No Symptoms Reported Psychiatric: reports: Mood/Affect Appropiate Other Systems: Reviewed and Negative Patient History - Patient Medical History Hx Anemia: No Hx Asthma: Yes Hx Chronic Obstructive Pulmonary Disease (COPD): Yes Hx Cancer: No Hx Cardiac Disorders: No Hx Congestive Heart Failure: No Hx Hypertension: No Hx Hypercholesterolemia: No Hx Pacemaker: No HX Cerebrovascular Accident: No Hx Seizures: No Hx Dementia: No Hx Diabetes: No Hx Gastrointestinal Disorders: No Hx Liver Disease: No Hx Genitourinary Disorders: No Hx Sexually Transmitted Disorders: No Hx Renal Disease (ESRD): No Hx Thyroid Disease: No Hx Human Immunodeficiency Virus (HIV): No Hx Hepatitis C: No Hx Depression: No Hx Suicide Attempt: No Hx Bipolar Disorder: No Hx Schizophrenia: No - Patient Surgical History Past Surgical History: No Hx Neurologic Surgery: No Hx Cataract Extraction: No Hx Cardiac Surgery: No Hx Lung Surgery: No Hx Breast Surgery: No Hx Breast Biopsy: No Hx Abdominal Surgery: Yes (HERNIA REPAIR 10 YRS AGO) Hx Appendectomy: No Hx Cholecystectomy: No Hx Genitourinary Surgery: No Hx Section: No Hx Orthopedic Surgery: No Anesthesia Reaction: No - PPD History Previous Implant?: Yes Documented Results: Negative w/proof Implanted On Prior [facility] Admission?: Yes Date: 01/09/18 Results: 0 PPD to be Administered?: No - Reproductive History Patient is a Female of Child Bearing Age (11 -55 yrs old): No - Smoking Cessation Smoking history: Current every day smoker Have you smoked in the past 12 months: Yes Aproximately how many cigarettes per day: 10 Hx Chewing Tobacco Use: No Initiated information on smoking cessation: Yes 'Breaking Loose' booklet given: 08/12/18 - Substance & Tx. History Hx Alcohol Use: Yes Hx Substance Use: No Substance Use Type: Alcohol Hx Substance Use Treatment: Yes (DETOX:12/2017) - Substances Abused Alcohol Route: Oral Frequency: Daily Amount used: ABDOULAYE 300ML Age of first use: 47 Date of Last Use: 08/12/18 Family Disease History - Family Disease History Family Disease History: Respiratory: Father (ASTHMA), Mother (ASTHMA) Admission Physical Exam [facility] - Vital Signs Vital Signs: Vital Signs - 24 hr 08/12/18 17:05 Temperature 96.2 F L Pulse Rate 83 Respiratory 20 Rate Blood Pressure 130/92 - Physical General Appearance: Yes: Disheveled HEENTM: Yes: Normocephalic, Normal Voice Respiratory: Yes: Chest Non-Tender, Lungs Clear, Normal Breath Sounds, No Respiratory Distress, No Accessory Muscle Use Neck: Yes: No masses,lesions,Nodules Breast: Yes: Breast Exam Deferred Cardiology: Yes: Regular Rhythm, Regular Rate Abdominal: Yes: Normal Bowel Sounds, Non Tender Genitourinary: Yes: Other (NO COMPLAINTS REPORTED) Musculoskeletal: Yes: full range of Motion, Gait Steady Extremities: Yes: Normal Capillary Refill, Normal Inspection Neurological: Yes: Alert, Normal Mood/Affect, Normal Response Integumentary: Yes: Normal Color, Dry, Warm Lymphatic: Yes: Within Normal Limits - Diagnostic (1) Alcohol dependence with uncomplicated withdrawal Current Visit: Yes Status: Chronic (2) Asthma Current Visit: Yes Status: Chronic Qualifiers: Asthma severity: mild intermittent Asthma complication type: uncomplicated (3) Nicotine dependence Current Visit: Yes Status: Chronic Qualifiers: Nicotine product type: cigarettes Substance use status: uncomplicated Qualified Code(s): F17.210 - Nicotine dependence, cigarettes, uncomplicated (4) COPD (chronic obstructive pulmonary disease) Current Visit: Yes Status: Chronic Qualifiers: COPD type: COPD with acute exacerbation Qualified Code(s): J44.1 - Chronic obstructive pulmonary disease with (acute) exacerbation Cleared for Admission [facility] - Detox or Rehab [facility] Level of Care: Medically Managed Detox Regimen/Protocol: Librium [facility] Breath Alcohol Content Breath Alcohol Content: 0.216 Urine Drug Screen - Results Drug Screen Negative: Yes Inpatient Rehab Admission - Rehab Decision to Admit Inpatient rehab admission?: No
[2018-08-12] MEDS ORDERED: chlordiazePOXIDE HCL 25 MG CAPSULE PO PRN (17:36)
[2018-08-12] MEDS ORDERED: MAGNESIUM HYDROX 2400MG/30ML ORAL SUSPENSION 30 ML CUP PO PRN (17:36)
[2018-08-12] MEDS ORDERED: ACETAMINOPHEN 325 MG TABLET (FP) PO PRN ×2 (17:36)
[2018-08-12] MEDS ORDERED: IBUPROFEN 400 MG TABLET (FP) PO PRN (17:36)
[2018-08-12] MEDS ORDERED: MELATONIN 5 MG TABLETS PO PRN (17:36)
[2018-08-12] MEDS ORDERED: ONDANSETRON *ODT* 4 MG TABLET SL PRN (17:36)
[2018-08-12] MEDS ORDERED: BISMUTH SUBSALICYLATE 524 MG/30 ML UD PO PRN (17:36)
[2018-08-12] MEDS ORDERED: MAGNESIUM CITRATE 300 ML BOTTLE PO PRN (17:36)
[2018-08-12] MEDS ORDERED: hydrOXYzine PAMOATE 25 MG CAPSULE (FP) PO PRN (17:36)
[2018-08-12] MEDS ORDERED: METHOCARBAMOL 500 MG TABLET PO PRN (17:36)
[2018-08-12] MEDS ORDERED: MENTHOL/PHENOL 1 EACH UD MM PRN (17:36)
[2018-08-12] MEDS ORDERED: NICOTINE POLACRILEX 2 MG GUM BUC PRN (17:36)
[2018-08-12] MEDS ORDERED: MAG HYDROX/AL HYDROX/SIMETH 30 ML UNIT-DOSE CUP PO PRN (17:36)
[2018-08-12] MEDS ORDERED: ALBUTEROL SO4 8 GM HFA INHALER IH PRN (17:37)
[2018-08-12] MEDS ORDERED: chlordiazePOXIDE HCL 25 MG CAPSULE PO ONE (19:00)
[2018-08-12] MEDS: THIAMINE HCL 100 MG TABLET (FP) PO SCH (22:44)
[2018-08-12] MEDS: chlordiazePOXIDE HCL 25 MG CAPSULE PO SCH (22:44)
[2018-08-13] MEDS: chlordiazePOXIDE HCL 25 MG CAPSULE PO SCH ×4 (05:33→22:27)
[2018-08-13] MEDS ORDERED: cloNIDine HCL 0.1 MG TABLET PO ONE (06:40)
--- NOTE | 2018-08-13 06:42 | PN ---
S Progress Note Note: Patient's blood pressure is B/P 174/100. Patient is asymptomatic Vital Signs Temperature 98.5 F 08/13/18 06:39 Pulse Rate 82 08/13/18 06:39 Respiratory Rate 18 08/13/18 06:39 Blood Pressure 174/100 H 08/13/18 06:39 O2 Sat by Pulse Oximetry (%) Action: Clonidine 0.1mg tablet oral ordered
[2018-08-13] MEDS: ALBUTEROL SO4 2.5/IPRATROPIUM 0.5 INH SOL 3 ML VIAL.NEB. NEB PRN ×2 (08:55→20:30)
[2018-08-13] MEDS: BUDESONIDE/FORMETEROL FUMARATE 80/4.5 mcg INHALER IH SCH ×2 (10:19→22:28)
[2018-08-13] MEDS: PRENATAL VITAMINS W/ FOLIC ACID TABLET (FP) PO SCH (10:20)
[2018-08-13] MEDS: NICOTINE 14 MG/24 HOURS TOPICAL PATCH TD SCH (10:22)
[2018-08-13] MEDS ORDERED: cloNIDine HCL 0.1 MG TABLET PO PRN (10:35)
--- NOTE | 2018-08-13 10:40 | PN ---
S CIWA - CIWA Score Nausea/Vomitin-Mild Nausea/No Vomiting Muscle Tremors: 3 Anxiety: 1-Mildly Anxious Agitation: 2 Paroxysmal Sweats: 1-Minimal Palms Moist Orientation: 1-Uncertain about Date Tacttile Disturbances: 0-None Auditory Disturbances: 0-None Visual Disturbances: 0-None Headache: 1-Very Mild CIWA-Ar Total Score: 10 [facility] Progress Note (SOAP) Subjective: long history of asthma cigarette smoker wheezing bilaterally nebulizer x 1 feeling better begin prednison 10 mg po daily x 15 days Objective: 08/13/18 10:40 Vital Signs Temperature 97.4 F L 08/13/18 09:32 Pulse Rate 90 08/13/18 09:32 Respiratory Rate 20 08/13/18 09:32 Blood Pressure 157/94 08/13/18 09:32 O2 Sat by Pulse Oximetry (%) lab pending 08/13/18 10:41 history of liver enzyme elevation Assessment: 08/13/18 10:41 withdrawal sx Plan: continue detox
[2018-08-13 12:33] LABS: HEMATOCRIT 39.5 % (35.4-49); HEMOGLOBIN 13.2 GM/dL (11.7-16.9); MCH 34.7 pg (25.7-33.7); MCHC 33.4 g/dl (32.0-35.9); MEAN CELL VOLUME 103.7 fl (80-96); MEAN PLT VOLUME 9.6 fl (7.5-11.1); PLATELET COUNT 88 K/MM3 (134-434); RBC 3.81 M/mm3 (4.00-5.60); WHITE BLOOD COUNT 3.8 K/mm3 (4.0-10.0)
[2018-08-13 12:58] LABS: ALBUMIN 3.7 g/dl (3.4-5.0); ALK PHOS 84 U/L (45-117); ANION GAP 6 MMOL/L (8-16); BILIRUBIN,TOTAL 0.8 mg/dL (0.2-1); BLOOD UREA NITROGEN 11 mg/dL (7-18); CALCIUM 8.8 mg/dL (8.5-10.1); CHLORIDE 102 mmol/L (98-107); CO2 31 mmol/L (21-32); CREATININE 0.6 mg/dL (0.55-1.3); GLUCOSE,RANDOM 79 mg/dL (74-106); POTASSIUM 3.5 mmol/L (3.5-5.1); SGOT/AST 300 U/L (15-37); SGPT/ALT 172 U/L (13-61); SODIUM 139 mmol/L (136-145); TOT PROT 7.1 g/dl (6.4-8.2)
[2018-08-13] MEDS: predniSONE 10 MG TABLET (UD) PO SCH (14:24)
[2018-08-13] MEDS: THIAMINE HCL 100 MG TABLET (FP) PO SCH (22:27)
[2018-08-14] MEDS: chlordiazePOXIDE HCL 25 MG CAPSULE PO SCH ×3 (06:01→18:19)
[2018-08-14] MEDS: PRENATAL VITAMINS W/ FOLIC ACID TABLET (FP) PO SCH (10:13)
[2018-08-14] MEDS: BUDESONIDE/FORMETEROL FUMARATE 80/4.5 mcg INHALER IH SCH ×2 (10:13→22:14)
[2018-08-14] MEDS: predniSONE 10 MG TABLET (UD) PO SCH (10:13)
[2018-08-14] MEDS: NICOTINE 14 MG/24 HOURS TOPICAL PATCH TD SCH (10:16)
--- NOTE | 2018-08-14 15:51 | PN ---
S CIWA - CIWA Score Nausea/Vomitin-No Nausea/No Vomiting Muscle Tremors: 1-None Visible, but [place] Anxiety: 1-Mildly Anxious Agitation: 1-Slight > Activity Paroxysmal Sweats: 1-Minimal Palms Moist Orientation: 0-Oriented Tacttile Disturbances: 0-None Auditory Disturbances: 0-None Visual Disturbances: 0-None Headache: 0-None Present CIWA-Ar Total Score: 4 B[facility] Progress Note (SOAP) Subjective: feeling better today well-rested social with peers in day room Objective: 08/14/18 15:50 Vital Signs Temperature 97.4 F L 08/14/18 14:43 Pulse Rate 68 08/14/18 14:43 Respiratory Rate 20 08/14/18 14:43 Blood Pressure 124/70 08/14/18 14:43 O2 Sat by Pulse Oximetry (%) Laboratory Tests 08/13/18 08/13/18 08/13/18 07:30 07:30 07:30 WBC 3.8 L RBC 3.81 L Hgb 13.2 Hct 39.5 MCV 103.7 H MCH 34.7 H MCHC 33.4 RDW 20.0 H Plt Count 88 L MPV 9.6 D Sodium 139 Potassium 3.5 Chloride 102 Carbon Dioxide 31 Anion Gap 6 L BUN 11 Creatinine 0.6 Creat Clearance w eGFR 138.87 Random Glucose 79 Calcium 8.8 Total Bilirubin 0.8 AST 300 H ALT 172 H Alkaline Phosphatase 84 Total Protein 7.1 Albumin 3.7 RPR Titer Nonreactive lab noted elevation ast Assessment: 08/14/18 15:58 withdrawal sx Plan: continue detox
[2018-08-14] MEDS: ALBUTEROL SO4 2.5/IPRATROPIUM 0.5 INH SOL 3 ML VIAL.NEB. NEB PRN (21:16)
[2018-08-14] MEDS: chlordiazePOXIDE HCL 10 MG CAPSULE PO SCH (22:13)
[2018-08-14] MEDS: THIAMINE HCL 100 MG TABLET (FP) PO SCH (22:13)
[2018-08-14] MEDS ORDERED: chlordiazePOXIDE HCL 10 MG CAPSULE PO PRN (23:00)
[2018-08-15] MEDS: chlordiazePOXIDE HCL 10 MG CAPSULE PO SCH (05:37)
[2018-08-15 06:07] VITALS: BP 123/70; PULSE 82; TEMP 98.3
--- NOTE | 2018-08-15 21:33 | DS ---
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 THUS , PRE-DISCHARGE MEDICAL ASSESSMENT UNABLE TO BE DONE. PER COAL GRADER Jose FLOWER, PATIENT REPORTED THAT HE WOULD BE RETURNING HOME AND TO WORK AFTER DISCHARGE FROM DETOX UNIT AND THAT HE WAS GIVEN A LIST OF 12-STEP / NA / AA SELF -HELP GROUPS IN AREA IN WHICH HE LIVES. Pertinent Past History: Asthma, C.O.P.D., Nicotine Dependence. - Physical Exam Results Vital Signs: Vital Signs Temperature 98.3 F 08/15/18 06:06 Pulse Rate 82 08/15/18 06:06 Respiratory Rate 16 08/15/18 06:06 Blood Pressure 123/70 08/15/18 06:06 O2 Sat by Pulse Oximetry (%) Pertinent Admission Physical Exam Findings: WITHDRAWAL SYMPTOMS. Laboratory Tests 08/13/18 08/13/18 08/13/18 07:30 07:30 07:30 WBC 3.8 L RBC 3.81 L Hgb 13.2 Hct 39.5 MCV 103.7 H MCH 34.7 H MCHC 33.4 RDW 20.0 H Plt Count 88 L MPV 9.6 D Sodium 139 Potassium 3.5 Chloride 102 Carbon Dioxide 31 Anion Gap 6 L BUN 11 Creatinine 0.6 Creat Clearance w eGFR 138.87 Random Glucose 79 Calcium 8.8 Total Bilirubin 0.8 AST 300 H ALT 172 H Alkaline Phosphatase 84 Total Protein 7.1 Albumin 3.7 RPR Titer Nonreactive LABS NOTED. - Treatment Hospital Course: Detox Protocol Followed, Detoxed Safely, Responded well, Discharged Condition Good Patient has Accepted a Rehab Referral to: PT. DECLINED, ADVISED TO CONSIDER LOCAL 12-STEP/NA/AA OP SUPPORT GROUPS. - Medication Discharge Medications: Ambulatory Orders Ipratropium/Albuterol Sulfate [Combivent Respimat 20-100 Mcg] 4 gm IH BID Prednisone 10 mg PO DAILY 08/13/18 Albuterol Sulfate Inhaler - [Ventolin HFA Inhaler -] 2 inh PO Q4H PRN #1 inhaler 08/14/18 - Diagnosis (1) Nicotine dependence Status: Acute Qualifiers: Nicotine product type: cigarettes Substance use status: in withdrawal Qualified Code(s): F17.213 - Nicotine dependence, cigarettes, with withdrawal (2) Alcohol dependence with uncomplicated withdrawal Status: Chronic (3) Asthma Status: Chronic Qualifiers: Asthma severity: unspecified severity Asthma persistence: unspecified Asthma complication type: uncomplicated Qualified Code(s): J45.909 - Unspecified asthma, uncomplicated (4) COPD (chronic obstructive pulmonary disease) Status: Chronic Qualifiers: COPD type: COPD with acute exacerbation Qualified Code(s): J44.1 - Chronic obstructive pulmonary disease with (acute) exacerbation - AMA Did Patient Leave Against Medical Advice: No
[2018-08-15] MEDS ORDERED: chlordiazePOXIDE HCL 10 MG CAPSULE PO SCH (23:00)
== END 2018-08-15 07:00 | disposition home or self-care (01) | DRG 897 ==
LOC: YASAS 14:30 → Y3N 18:55
PROVIDERS: ADMIT Surgery; ATTEND Surgery
PROC: HZ2ZZZZ Detoxification Services for Substance Abuse Treatment (ICD-10-PCS; principal; 2018-08-12)
DX: F10.20 Alcohol dependence, uncomplicated (principal); J44.1 Chronic obstructive pulmonary disease with (acute) exacerbation; F17.210 Nicotine dependence, cigarettes, uncomplicated; J45.909 Unspecified asthma, uncomplicated; R74.8 Abnormal levels of other serum enzymes; R94.5 Abnormal results of liver function studies
CPT/HCPCS: 36415; 80053; 85027; 86593; 94640; J0735

== ENCOUNTER 2019-02-10 10:52 | Emergency (ER) | payer OTHER ==
[2019-02-10 11:07] VITALS: BMI 18.8
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
[2019-02-10] MEDS ORDERED: DIPHTH,PERTUSS(ACELL),TET 0.5 ML DISP.SYRIN IM ONE ×2 (12:02→12:17)
[2019-02-10] MEDS ORDERED: ACETAMINOPHEN 325 MG TABLET (FP) PO ONE (12:02)
[2019-02-10] MEDS ORDERED: ACETAMINOPHEN 325 MG TABLET (FP) ONE (12:16)
[2019-02-10 12:48] LABS: BASO % 1.6 % (0-2.0); EOS % 0.1 % (0-4.5); HEMATOCRIT 47.2 % (35.4-49); HEMOGLOBIN 16.4 GM/dL (11.7-16.9); LYMPH % 19.4 % (8-40); MCH 34.7 pg (25.7-33.7); MCHC 34.8 g/dl (32.0-35.9); MEAN CELL VOLUME 99.8 fl (80-96); MEAN PLT VOLUME 9.1 fl (7.5-11.1); NEUT % 71.9 % (42.8-82.8); PLATELET COUNT 133 K/MM3 (134-434); RBC 4.73 M/mm3 (4.00-5.60); RDW 16.9 % (11.9-15.9)
[2019-02-10 13:09] LABS: ALBUMIN 4.3 g/dl (3.4-5.0); BILIRUBIN,TOTAL 0.4 mg/dL (0.2-1); CALCIUM 9.3 mg/dL (8.5-10.1); CREATININE 0.7 mg/dL (0.55-1.3); INR 0.92 (0.83-1.09); POTASSIUM 3.9 mmol/L (3.5-5.1); PROTHROMBIN TIME (PATIENT) 10.9 SEC (9.7-13.0); TOT PROT 8.5 g/dl (6.4-8.2)
--- NOTE | 2019-02-10 14:31 | EKG ---
Test Reason : Blood Pressure : / mmHG Vent. Rate : 071 BPM Atrial Rate : 071 BPM P-R Int : 158 ms QRS Dur : 102 ms QT Int : 430 ms P-R-T Axes : 265 080 078 degrees QTc Int : 467 ms UNUSUAL P AXIS, POSSIBLE ECTOPIC ATRIAL RHYTHM WITH UNDETERMINED RHYTHM IRREGULARITY SEPTAL INFARCT (CITED ON OR BEFORE 23-APR-2007) ABNORMAL ECG WHEN COMPARED WITH ECG OF 25-APR-2007 10:35, ECTOPIC ATRIAL RHYTHM HAS REPLACED SINUS RHYTHM QRS AXIS SHIFTED LEFT QUESTIONABLE CHANGE IN INITIAL FORCES OF ANTEROLATERAL LEADS NON-SPECIFIC CHANGE IN ST SEGMENT IN LATERAL LEADS T WAVE INVERSION LESS EVIDENT IN ANTEROLATERAL LEADS Confirmed by MD Cayden, Parker ([id number]) on 02/10/2019 2:30:58 PM Referred By: Confirmed By:Parker Rodarte MD
--- NOTE | 2019-02-10 15:38 | EKG ---
Test Reason : Blood Pressure : / mmHG Vent. Rate : 072 BPM Atrial Rate : 072 BPM P-R Int : 130 ms QRS Dur : 094 ms QT Int : 426 ms P-R-T Axes : -74 112 107 degrees QTc Int : 466 ms ECTOPIC ATRIAL RHYTHM RIGHT AXIS DEVIATION LATERAL INFARCT , AGE UNDETERMINED T WAVE ABNORMALITY, CONSIDER ANTERIOR ISCHEMIA ABNORMAL ECG Confirmed by MD BRIDGETTE, CHRISTIANO ([id number]) on 02/10/2019 3:37:52 PM Referred By: Confirmed By:CHRISTIANO ANGELES MD
[2019-02-10] MEDS ORDERED: CYCLOBENZAPRINE HCL 10 MG TABLET (FP) PO ONE (15:56)
[2019-02-10] MEDS ORDERED: LIDOCAINE 5% TOPICAL PATCH TP ONE (15:57)
[2019-02-10] MEDS ORDERED: CYCLOBENZAPRINE HCL 10 MG TABLET (FP) ONE (16:02)
[2019-02-10] MEDS ORDERED: LIDOCAINE 5% TOPICAL PATCH ONE (16:03)
[2019-02-10 16:12] VITALS: BP 130/89; PULSE 77; TEMP 97.6
--- NOTE | 2019-02-11 11:03 | EKG ---
Test Reason : Blood Pressure : / mmHG Vent. Rate : 084 BPM Atrial Rate : 071 BPM P-R Int : 130 ms QRS Dur : 090 ms QT Int : 424 ms P-R-T Axes : 000 119 115 degrees QTc Int : 501 ms POOR DATA QUALITY, INTERPRETATION MAY BE ADVERSELY AFFECTED motion artifacts SINUS RHYTHM WITH ANTEROLATERAL INFARCT (CITED ON OR BEFORE 23-APR-2007) PROLONGED QT ABNORMAL ECG Confirmed by BASIM BECK, MARY ([id number]) on 02/11/2019 11:03:31 AM Referred By: Confirmed By:MARY STALLWORTH MD
== END 2019-02-10 17:03 | disposition home or self-care (01) ==
LOC: JER 10:52
DX: M54.2 Cervicalgia (principal); S00.81XA Abrasion of other part of head, initial encounter; S60.512A Abrasion of left hand, initial encounter; Y04.2XXA Assault by strike against or bumped into by another person, initial encounter; Y93.89 Activity, other specified; Y92.89 Other specified places as the place of occurrence of the external cause; Y99.0 Civilian activity done for income or pay; Y07.9 Unspecified perpetrator of maltreatment and neglect; J44.9 Chronic obstructive pulmonary disease, unspecified; J45.998 Other asthma; F10.10 Alcohol abuse, uncomplicated; R94.5 Abnormal results of liver function studies
CPT/HCPCS: 36415; 70360-TC-FY; 70450-TC; 71046-TC-FY; 72050-TC-FY; 80053; 82550; 82553; 84484; 85025; 85610; 90715; 93005; 93010; 99285-25

== ENCOUNTER 2019-03-01 14:02 | Inpatient (IN) | payer OTHER ==
[2019-03-01 14:17] VITALS: BMI 19.6
--- NOTE | 2019-03-01 15:06 | HP ---
CIWA Score Nausea/Vomitin-No Nausea/No Vomiting Muscle Tremors: 4-Moderate,w/Arms Extend Anxiety: 4-Mod. Anxious/Guarded Agitation: 2 Paroxysmal Sweats: 2 Orientation: 0-Oriented Tacttile Disturbances: 0-None Auditory Disturbances: 0-None Visual Disturbances: 1-Very Mild Sensitivity Headache: 0-None Present CIWA-Ar Total Score: 13 - Admission Criteria [facility] Guidelines: Admission for Medically Managed Detox: Requires at least one of the followin. CIWA greater than 12 2. Seizures within the past 24 hours 3. Delirium tremens within the past 24 hours 4. Hallucinations within the past 24 hours 5. Acute intervention needed for co occurring medical disorder 6. Acute intervention needed for co occurring psychiatric disorder 7. Severe withdrawal that cannot be handled at a lower level of care (continued vomiting, continued diarrhea, abnormal vital signs) requiring intravenous medication and/or fluids 8. Patient presents the following: CIWA greater than 12 Admission Criteria Met: Admission criteria met Admitting History and Physical - Primary Care Physician PCP: Dr. Spencer ([place], [place].) - Admission Chief Complaint: "I indra to stop drinking alcohol.". Patient is here to Detox from Alcohol. History of Present Illness: Patient is a 58 YO male here for Detox from Alcohol. Patient has had previous admissions at [facility] (last: 07/2017). HEATHER Today at time of admission to Detox: 0.238. Patient denies history of seizures. Confidential Drug Utilization Report Search Terms: Micky Dickson, 1960 Search Date: 03/01/2019 03:50:49 PM The Drug Utilization Report below displays all of the controlled substance prescriptions, if any, that your patient has filled in the last twelve months. The information displayed on this report is compiled from pharmacy submissions to the Department, and accurately reflects the information as submitted by the pharmacies. This report was requested by: Tj Mccabe | Reference #: [id number] There are no results for the search terms that you entered. History Source: Patient Limitations to Obtaining History: No Limitations - Past Medical History Pulmonary: Yes: COPD Additional Past Medical History: DENIES. - Past Surgical History Past Surgical History: Yes: Hernia Repair (Approx. 10 years ago.) Additional Past Surgical History: DENIES. 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 History of Recent Travel: No Admission ROS [facility] - [facility] Chief Complaint: "I need to stop drinking alcohol." Patient is here to Detox from Alcohol. Allergies/Adverse Reactions: Allergies Allergy/AdvReac Type Severity Reaction Status Date / Time No Known Allergies Allergy Verified 03/01/19 14:10 History of Present Illness: Patient is a 58 YO male here for Detox from Alcohol. Patient has had previous admissions at [facility] (last: 07/2017). Exam Limitations: No Limitations - Ebola screening Have you traveled outside of the country in the last 21 days: No Have you had contact with anyone from an Ebola affected area: No Have you been sick,other than usual withdrawal symptoms: No Do you have a fever: No - Review of Systems Constitutional: Diaphoresis, Loss of Appetite, Malaise, Changes in sleep ( Excessive Sleeping.) EENT: reports: No Symptoms Reported Respiratory: reports: Cough (Occasional.) Cardiac: reports: No Symptoms Reported GI: reports: No Symptoms Reported : reports: No Symptoms Reported Musculoskeletal: reports: No Symptoms Reported Integumentary: reports: No Symptoms Reported Neuro: reports: Tremors Endocrine: reports: No Symptoms Reported Hematology: reports: No Symptoms Reported Psychiatric: reports: No Sypmtoms Reported, Judgement Intact, Mood/Affect Appropiate, Orientated x3, Anxious Other Systems: Reviewed and Negative Patient History - Patient Medical History Hx Anemia: No Hx Asthma: No Hx Chronic Obstructive Pulmonary Disease (COPD): Yes (Takes Medication.) Hx Cancer: No Hx Cardiac Disorders: No Hx Congestive Heart Failure: No Hx Hypertension: No Hx Hypercholesterolemia: No Hx Pacemaker: No HX Cerebrovascular Accident: No Hx Seizures: No Hx Dementia: No Hx Diabetes: No Hx Gastrointestinal Disorders: No Hx Liver Disease: No Hx Genitourinary Disorders: No Hx Sexually Transmitted Disorders: No Hx Renal Disease (ESRD): No Hx Thyroid Disease: No Hx Human Immunodeficiency Virus (HIV): No (Never Tested, Declines Testing Today. ) Hx Hepatitis C: No (Never Tested, Declines Testing Today.) Hx Depression: No Hx Suicide Attempt: No (PATIENT DENEIS CURRENT SI / HI.) Hx Bipolar Disorder: No Hx Schizophrenia: No Other Medical History: DENIES. - Patient Surgical History Past Surgical History: No Hx Neurologic Surgery: No Hx Cataract Extraction: No Hx Cardiac Surgery: No Hx Lung Surgery: No Hx Breast Surgery: No Hx Breast Biopsy: No Hx Abdominal Surgery: Yes (HERNIA REPAIR 10 YRS AGO) Hx Appendectomy: No Hx Cholecystectomy: No Hx Genitourinary Surgery: No Hx Section: No Hx Orthopedic Surgery: No Other Surgical History: DENIES. Anesthesia Reaction: No - PPD History Previous Implant?: Yes Documented Results: Negative w/proof Implanted On Prior [facility] Admission?: Yes Date: 01/09/18 Results: 0 PPD to be Administered?: Yes - Reproductive History Patient is a Female of Child Bearing Age (11 -55 yrs old): No (PATIENT IS MALE.) - Smoking Cessation Smoking history: Current some day smoker Have you smoked in the past 12 months: Yes Aproximately how many cigarettes per day: 15 Cigars Per Day: 0 Hx Chewing Tobacco Use: No Initiated information on smoking cessation: Yes 'Breaking Loose' booklet given: 03/01/19 (GIVEN TO PATIENT.) - Substance & Tx. History Hx Alcohol Use: Yes Hx Substance Use: Yes Substance Use Type: Alcohol Hx Substance Use Treatment: Yes (Previous Detox Admissions at [facility] (Last: 2018).) - Substances abused Alcohol Substance route: Oral Frequency: Daily Amount used: 200 ml Age of first use: 25 Date of last use: 03/01/19 Admission Physical Exam S - Vital Signs Vital Signs: Vital Signs - 24 hr 03/01/19 14:13 Temperature 97.9 F Pulse Rate 107 H Respiratory 16 Rate Blood Pressure 118/81 - Physical General Appearance: Yes: No Apparent Distress, Nourished, Appropriately Dressed , Tremorous, Anxious HEENTM: Yes: Hearing grossly Normal, Normocephalic, Normal Voice, KEITH, Pharynx Normal Respiratory: Yes: Chest Non-Tender, Lungs Clear, No Respiratory Distress, No Accessory Muscle Use Neck: Yes: No masses,lesions,Nodules, Supple, Trachea in good position Breast: Yes: Breast Exam Deferred Cardiology: Yes: Regular Rhythm, Regular Rate, S1, S2 Abdominal: Yes: Normal Bowel Sounds, Non Tender, Flat, Soft Genitourinary: Yes: Within Normal Limits Back: Yes: Normal Inspection Musculoskeletal: Yes: full range of Motion, Gait Steady Extremities: Yes: Normal Capillary Refill, Normal Range of Motion, Non-Tender, Tremors Neurological: Yes: Fully Oriented, Alert, Normal Mood/Affect, Normal Response Integumentary: Yes: Normal Color, Dry, Warm Lymphatic: Yes: Within Normal Limits - Diagnostic (1) Alcohol dependence with withdrawal Current Visit: Yes Status: Acute Qualifiers: Complication of substance-induced condition: uncomplicated Qualified Code(s ): F10.230 - Alcohol dependence with withdrawal, uncomplicated (2) Nicotine dependence Current Visit: Yes Status: Acute Qualifiers: Nicotine product type: cigarettes Substance use status: uncomplicated Qualified Code(s): F17.210 - Nicotine dependence, cigarettes, uncomplicated (3) COPD (chronic obstructive pulmonary disease) Current Visit: Yes Status: Chronic Qualifiers: COPD type: unspecified COPD Qualified Code(s): J44.9 - Chronic obstructive pulmonary disease, unspecified (4) History of hernia repair Current Visit: Yes Status: Resolved Cleared for Admission [facility] - Detox or Rehab [facility] Level of Care: Medically Managed Detox Regimen/Protocol: Librium Claeared for Rehab Admission: No Breathalyzer - Breathalyzer Breathalyzer: 0.238 Urine Drug Screen - Test Device Lot number: [id number] Expiration date: 10/17/20 - Control Is test valid?: Yes - Results Drug screen NEGATIVE: No Inpatient Rehab Admission - Rehab Decision to Admit Inpatient rehab admission?: No
[2019-03-01] MEDS ORDERED: ACETAMINOPHEN 325 MG TABLET (FP) PO PRN ×2 (15:33)
[2019-03-01] MEDS ORDERED: chlordiazePOXIDE HCL 25 MG CAPSULE PO ONE (15:33)
[2019-03-01] MEDS ORDERED: BISMUTH SUBSALICYLATE 524 MG/30 ML UD PO PRN (15:33)
[2019-03-01] MEDS ORDERED: MAGNESIUM CITRATE 300 ML BOTTLE PO PRN (15:33)
[2019-03-01] MEDS ORDERED: METHOCARBAMOL 500 MG TABLET PO PRN (15:33)
[2019-03-01] MEDS ORDERED: NICOTINE POLACRILEX 2 MG GUM BUC PRN (15:33)
[2019-03-01] MEDS ORDERED: MELATONIN 5 MG TABLETS PO PRN (15:33)
[2019-03-01] MEDS ORDERED: chlordiazePOXIDE HCL 25 MG CAPSULE PO PRN (15:33)
[2019-03-01] MEDS ORDERED: MENTHOL/PHENOL 1 EACH UD MM PRN (15:33)
[2019-03-01] MEDS ORDERED: hydrOXYzine PAMOATE 25 MG CAPSULE (FP) PO PRN (15:33)
[2019-03-01] MEDS ORDERED: IBUPROFEN 400 MG TABLET (FP) PO PRN (15:33)
[2019-03-01] MEDS ORDERED: MAGNESIUM HYDROX 2400MG/30ML ORAL SUSPENSION 30 ML CUP PO PRN (15:33)
[2019-03-01] MEDS ORDERED: MAG HYDROX/AL HYDROX/SIMETH 30 ML UNIT-DOSE CUP PO PRN (15:33)
[2019-03-01] MEDS: PATIENT'S OWN MEDICATION (NON-FORMULARY) (Ipratropium/Albuterol Sulfate [Combivent Respima PO SCH ×2 (18:33→22:33)
[2019-03-01] MEDS: THIAMINE HCL 100 MG TABLET (FP) PO SCH (22:26)
[2019-03-01] MEDS: chlordiazePOXIDE HCL 25 MG CAPSULE PO SCH (22:26)
[2019-03-01] MEDS: BUDESONIDE/FORMETEROL FUMARATE 160/4.5 mcg INHALER IH SCH (22:27)
[2019-03-02] MEDS: chlordiazePOXIDE HCL 25 MG CAPSULE PO SCH ×4 (06:05→22:21)
[2019-03-02] MEDS ORDERED: cloNIDine HCL 0.1 MG TABLET PO ONE (09:05)
[2019-03-02 10:04] LABS: HEMATOCRIT 43.1 % (35.4-49); HEMOGLOBIN 14.8 GM/dL (11.7-16.9); MCHC 34.4 g/dl (32.0-35.9); MEAN CELL VOLUME 98.9 fl (80-96); MEAN PLT VOLUME 9.9 fl (7.5-11.1); PLATELET COUNT 150 K/MM3 (134-434); RBC 4.35 M/mm3 (4.00-5.60); RDW 16.1 % (11.9-15.9); WHITE BLOOD COUNT 6.8 K/mm3 (4.0-10.0)
[2019-03-02 10:14] LABS: ALBUMIN 3.6 g/dl (3.4-5.0); BLOOD UREA NITROGEN 14.4 mg/dL (7-18); CALCIUM 9.6 mg/dL (8.5-10.1); CREATININE 0.7 mg/dL (0.55-1.3); POTASSIUM 3.3 mmol/L (3.5-5.1); TOT PROT 7.3 g/dl (6.4-8.2)
[2019-03-02] MEDS: BUDESONIDE/FORMETEROL FUMARATE 160/4.5 mcg INHALER IH SCH ×2 (10:27→22:21)
[2019-03-02] MEDS: PRENATAL VITAMINS W/ FOLIC ACID TABLET (FP) PO SCH (10:27)
[2019-03-02] MEDS: PATIENT'S OWN MEDICATION (NON-FORMULARY) (Ipratropium/Albuterol Sulfate [Combivent Respima PO SCH ×3 (10:34→22:22)
--- NOTE | 2019-03-02 13:34 | PN ---
S CIWA - CIWA Score Nausea/Vomitin-No Nausea/No Vomiting Muscle Tremors: 3 Anxiety: 3 Agitation: 3 Paroxysmal Sweats: 3 Orientation: 0-Oriented Tacttile Disturbances: 0-None Auditory Disturbances: 0-None Visual Disturbances: 0-None Headache: 0-None Present CIWA-Ar Total Score: 12 BHS Progress Note (SOAP) Subjective: sweats shakes interrupted sleep body aches anxiety Objective: 03/02/19 13:33 Vital Signs Temperature 98.1 F 03/02/19 13:07 Pulse Rate 117 H 03/02/19 13:07 Respiratory Rate 16 03/02/19 13:07 Blood Pressure 129/73 03/02/19 13:07 O2 Sat by Pulse Oximetry (%) Laboratory Tests 03/02/19 03/02/19 03/02/19 08:00 08:00 08:00 WBC 6.8 RBC 4.35 Hgb 14.8 Hct 43.1 MCV 98.9 H MCH 34.0 H MCHC 34.4 RDW 16.1 H Plt Count 150 MPV 9.9 Sodium 138 Potassium 3.3 L Chloride 96 L Carbon Dioxide 30 Anion Gap 12 BUN 14.4 Creatinine 0.7 Est GFR (CKD-EPI)AfAm 120.56 Est GFR (CKD-EPI)NonAf 104.02 Random Glucose 94 Calcium 9.6 Total Bilirubin 1.0 AST 157 H ALT 110 H Alkaline Phosphatase 70 Total Protein 7.3 Albumin 3.6 RPR Titer HIV 1&2 Antibody Screen Negative HIV P24 Antigen Negative 03/02/19 08:00 WBC RBC Hgb Hct MCV MCH MCHC RDW Plt Count MPV Sodium Potassium Chloride Carbon Dioxide Anion Gap BUN Creatinine Est GFR (CKD-EPI)AfAm Est GFR (CKD-EPI)NonAf Random Glucose Calcium Total Bilirubin AST ALT Alkaline Phosphatase Total Protein Albumin RPR Titer Nonreactive HIV 1&2 Antibody Screen HIV P24 Antigen labs noted elevated ast/alt d/c tylenol repeat labs elevated HR. clonidine 0.1 daily ordered Assessment: 03/02/19 13:33 withdrawals Plan: continue detox
[2019-03-02] MEDS: POTASSIUM CHLORIDE TABS 20 MEQ TABLET.ER (FP) PO SCH (15:22)
[2019-03-02] MEDS: THIAMINE HCL 100 MG TABLET (FP) PO SCH (22:21)
[2019-03-02] MEDS: cloNIDine HCL 0.1 MG TABLET PO SCH (22:21)
[2019-03-03] MEDS: chlordiazePOXIDE HCL 25 MG CAPSULE PO SCH ×4 (06:49→22:10)
[2019-03-03] MEDS: PATIENT'S OWN MEDICATION (NON-FORMULARY) (Ipratropium/Albuterol Sulfate [Combivent Respima PO SCH ×3 (06:49→22:09)
[2019-03-03] MEDS: BUDESONIDE/FORMETEROL FUMARATE 160/4.5 mcg INHALER IH SCH ×2 (10:21→22:09)
[2019-03-03] MEDS: PRENATAL VITAMINS W/ FOLIC ACID TABLET (FP) PO SCH (10:22)
[2019-03-03] MEDS: cloNIDine HCL 0.1 MG TABLET PO SCH ×2 (10:22→21:52)
[2019-03-03] MEDS: POTASSIUM CHLORIDE TABS 20 MEQ TABLET.ER (FP) PO SCH (10:22)
--- NOTE | 2019-03-03 10:58 | PN ---
[facility] CIWA - CIWA Score Nausea/Vomitin-No Nausea/No Vomiting Muscle Tremors: 3 Anxiety: 3 Agitation: 2 Paroxysmal Sweats: 2 Orientation: 0-Oriented Tacttile Disturbances: 0-None Auditory Disturbances: 0-None Visual Disturbances: 0-None Headache: 0-None Present CIWA-Ar Total Score: 10 BHS Progress Note (SOAP) Subjective: on/off sleep sweats chills body aches Objective: 03/03/19 10:58 Vital Signs Temperature 97.7 F 03/03/19 09:22 Pulse Rate 91 H 03/03/19 09:22 Respiratory Rate 18 03/03/19 09:22 Blood Pressure 147/86 03/03/19 09:22 O2 Sat by Pulse Oximetry (%) Laboratory Tests 03/02/19 03/02/19 03/02/19 08:00 08:00 08:00 WBC 6.8 RBC 4.35 Hgb 14.8 Hct 43.1 MCV 98.9 H MCH 34.0 H MCHC 34.4 RDW 16.1 H Plt Count 150 MPV 9.9 Sodium 138 Potassium 3.3 L Chloride 96 L Carbon Dioxide 30 Anion Gap 12 BUN 14.4 Creatinine 0.7 Est GFR (CKD-EPI)AfAm 120.56 Est GFR (CKD-EPI)NonAf 104.02 Random Glucose 94 Calcium 9.6 Total Bilirubin 1.0 AST 157 H ALT 110 H Alkaline Phosphatase 70 Total Protein 7.3 Albumin 3.6 RPR Titer HIV 1&2 Antibody Screen Negative HIV P24 Antigen Negative 03/02/19 08:00 WBC RBC Hgb Hct MCV MCH MCHC RDW Plt Count MPV Sodium Potassium Chloride Carbon Dioxide Anion Gap BUN Creatinine Est GFR (CKD-EPI)AfAm Est GFR (CKD-EPI)NonAf Random Glucose Calcium Total Bilirubin AST ALT Alkaline Phosphatase Total Protein Albumin RPR Titer Nonreactive HIV 1&2 Antibody Screen HIV P24 Antigen labs noted repeated labs ordered aaox3 ambulating no acute distress Assessment: 03/03/19 10:59 withdrawal sx Plan: continue detox increase fluids cbc, cmp ordered ensure bid
[2019-03-03] MEDS: THIAMINE HCL 100 MG TABLET (FP) PO SCH (22:10)
[2019-03-04] MEDS ORDERED: chlordiazePOXIDE HCL 10 MG CAPSULE PO PRN
[2019-03-04] MEDS: PATIENT'S OWN MEDICATION (NON-FORMULARY) (Ipratropium/Albuterol Sulfate [Combivent Respima PO SCH ×3 (06:40→22:06)
[2019-03-04] MEDS: chlordiazePOXIDE HCL 10 MG CAPSULE PO SCH ×4 (07:40→22:06)
[2019-03-04] MEDS: BUDESONIDE/FORMETEROL FUMARATE 160/4.5 mcg INHALER IH SCH ×2 (10:16→22:05)
[2019-03-04] MEDS: PRENATAL VITAMINS W/ FOLIC ACID TABLET (FP) PO SCH (10:16)
[2019-03-04] MEDS: POTASSIUM CHLORIDE TABS 20 MEQ TABLET.ER (FP) PO SCH (10:16)
[2019-03-04] MEDS: cloNIDine HCL 0.1 MG TABLET PO SCH ×2 (10:16→22:06)
--- NOTE | 2019-03-04 11:41 | PN ---
S CIWA - CIWA Score Nausea/Vomitin-No Nausea/No Vomiting Muscle Tremors: 2 Anxiety: 1-Mildly Anxious Agitation: 1-Slight > Activity Paroxysmal Sweats: 1-Minimal Palms Moist Orientation: 0-Oriented Tacttile Disturbances: 0-None Auditory Disturbances: 0-None Visual Disturbances: 0-None Headache: 0-None Present CIWA-Ar Total Score: 5 BHS Progress Note (SOAP) Subjective: sweats interrupted sleep low back pain Objective: 03/04/19 11:40 Vital Signs Temperature 97.7 F 03/04/19 10:02 Pulse Rate 80 03/04/19 10:02 Respiratory Rate 18 03/04/19 10:02 Blood Pressure 112/74 03/04/19 10:02 O2 Sat by Pulse Oximetry (%) Laboratory Tests 03/02/19 03/02/19 03/02/19 08:00 08:00 08:00 WBC 6.8 RBC 4.35 Hgb 14.8 Hct 43.1 MCV 98.9 H MCH 34.0 H MCHC 34.4 RDW 16.1 H Plt Count 150 MPV 9.9 Sodium 138 Potassium 3.3 L Chloride 96 L Carbon Dioxide 30 Anion Gap 12 BUN 14.4 Creatinine 0.7 Est GFR (CKD-EPI)AfAm 120.56 Est GFR (CKD-EPI)NonAf 104.02 Random Glucose 94 Calcium 9.6 Total Bilirubin 1.0 AST 157 H ALT 110 H Alkaline Phosphatase 70 Ammonia Total Protein 7.3 Albumin 3.6 RPR Titer HIV 1&2 Antibody Screen Negative HIV P24 Antigen Negative 03/02/19 03/03/19 08:00 13:30 WBC RBC Hgb Hct MCV MCH MCHC RDW Plt Count MPV Sodium Potassium Chloride Carbon Dioxide Anion Gap BUN Creatinine Est GFR (CKD-EPI)AfAm Est GFR (CKD-EPI)NonAf Random Glucose Calcium Total Bilirubin AST ALT Alkaline Phosphatase Ammonia < 10.00 L Total Protein Albumin RPR Titer Nonreactive HIV 1&2 Antibody Screen HIV P24 Antigen labs noted aaox3 ambulating no acute distress Assessment: 03/04/19 11:40 mild withdrawals Plan: continue detox increase fluids lidocaine patch motrin 800mg tid
[2019-03-04 12:11] LABS: BASO % 0.5 % (0-2.0); EOS % 2.2 % (0-4.5); HEMATOCRIT 40.2 % (35.4-49); HEMOGLOBIN 13.7 GM/dL (11.7-16.9); LYMPH % 25.9 % (8-40); MCH 34.8 pg (25.7-33.7); MCHC 34.1 g/dl (32.0-35.9); MEAN CELL VOLUME 101.8 fl (80-96); MEAN PLT VOLUME 10.7 fl (7.5-11.1); MONO % 11.4 % (3.8-10.2); PLATELET COUNT 126 K/MM3 (134-434); RBC 3.95 M/mm3 (4.00-5.60); RDW 15.4 % (11.9-15.9)
[2019-03-04 12:24] LABS: ALBUMIN 3.3 g/dl (3.4-5.0); BILIRUBIN,TOTAL 0.6 mg/dL (0.2-1); BLOOD UREA NITROGEN 11.2 mg/dL (7-18); CALCIUM 9.6 mg/dL (8.5-10.1); CREATININE 0.8 mg/dL (0.55-1.3); TOT PROT 6.6 g/dl (6.4-8.2)
[2019-03-04] MEDS ORDERED: LIDOCAINE 5% TOPICAL PATCH TP ONE (14:52)
[2019-03-04] MEDS ORDERED: IBUPROFEN 400 MG TABLET (FP) PO PRN (14:52)
[2019-03-04] MEDS: THIAMINE HCL 100 MG TABLET (FP) PO SCH (22:06)
[2019-03-04] MEDS: LIDOCAINE PATCH REMOVAL MC SCH (22:06)
[2019-03-05] MEDS: PATIENT'S OWN MEDICATION (NON-FORMULARY) (Ipratropium/Albuterol Sulfate [Combivent Respima PO SCH ×3 (05:57→22:35)
[2019-03-05] MEDS: chlordiazePOXIDE HCL 10 MG CAPSULE PO SCH ×2 (05:57→17:23)
[2019-03-05] MEDS ORDERED: LIDOCAINE 5% TOPICAL PATCH TP SCH (10:00)
[2019-03-05] MEDS: cloNIDine HCL 0.1 MG TABLET PO SCH ×2 (10:25→22:35)
[2019-03-05] MEDS: PRENATAL VITAMINS W/ FOLIC ACID TABLET (FP) PO SCH (10:25)
[2019-03-05] MEDS: BUDESONIDE/FORMETEROL FUMARATE 160/4.5 mcg INHALER IH SCH ×2 (10:26→22:34)
--- NOTE | 2019-03-05 11:04 | PN ---
[facility] CIWA - CIWA Score Nausea/Vomitin-No Nausea/No Vomiting Muscle Tremors: 2 Anxiety: 0-No Anxiety, at Ease Agitation: 1-Slight > Activity Paroxysmal Sweats: No Perspiration Orientation: 0-Oriented Tacttile Disturbances: 0-None Auditory Disturbances: 0-None Visual Disturbances: 0-None Headache: 0-None Present CIWA-Ar Total Score: 3 BHS Progress Note (SOAP) Subjective: feeling better little anxiety Objective: 03/05/19 11:03 Vital Signs Temperature 97.7 F 03/05/19 09:56 Pulse Rate 71 03/05/19 09:56 Respiratory Rate 16 03/05/19 09:56 Blood Pressure 104/68 03/05/19 09:56 O2 Sat by Pulse Oximetry (%) aaox3 ambulating no acute distress Assessment: 03/05/19 11:04 mild withdrawals Plan: continue detox d/c in am
[2019-03-05] MEDS: THIAMINE HCL 100 MG TABLET (FP) PO SCH (22:34)
[2019-03-05] MEDS: LIDOCAINE PATCH REMOVAL MC SCH (22:34)
[2019-03-06] MEDS ORDERED: chlordiazePOXIDE HCL 10 MG CAPSULE PO ONE (05:00)
[2019-03-06] MEDS: PATIENT'S OWN MEDICATION (NON-FORMULARY) (Ipratropium/Albuterol Sulfate [Combivent Respima PO SCH (06:59)
[2019-03-06 09:33] VITALS: BP 90/60; PULSE 81; TEMP 97.7
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
== END 2019-03-06 09:14 | disposition home or self-care (01) | DRG 897 ==
LOC: YASAS 14:02 → Y6N 15:33
PROVIDERS: ADMIT Allergy & Immunology; ATTEND Allergy & Immunology
PROC: HZ2ZZZZ Detoxification Services for Substance Abuse Treatment (ICD-10-PCS; principal; 2019-03-01)
DX: F10.230 Alcohol dependence with withdrawal, uncomplicated (principal); F17.210 Nicotine dependence, cigarettes, uncomplicated; J44.9 Chronic obstructive pulmonary disease, unspecified; E87.6 Hypokalemia; R74.0 Nonspecific elevation of levels of transaminase and lactic acid dehydrogenase [LDH]; Z98.890 Other specified postprocedural states
CPT/HCPCS: 36415; 80053; 82140; 85025; 85027; 86593; 87389; J0735

== ENCOUNTER 2021-03-28 13:22 | Inpatient (IN) | payer OTHER ==
[2021-03-28] MEDS ORDERED: predniSONE 20 MG TABLET (UD) PO ONE (15:27)
[2021-03-28] MEDS ORDERED: SODIUM CHLORIDE 1,000 ML IV STA (15:28)
[2021-03-28] MEDS ORDERED: ONDANSETRON 4 MG/2 ML VIAL IVPUSH ONE (15:28)
[2021-03-28] MEDS ORDERED: ONDANSETRON 4 MG/2 ML VIAL ONE (15:37)
[2021-03-28] MEDS ORDERED: predniSONE 20 MG TABLET (UD) ONE (15:38)
[2021-03-28 16:58] LABS: BASO % 1.1 % (0-2.0); EOS % 1.2 % (0-4.5); HEMATOCRIT 44.4 % (35.4-49); HEMOGLOBIN 15.2 GM/dL (11.7-16.9); LYMPH % 32.9 % (8-40); MCH 34.6 pg (25.7-33.7); MCHC 34.3 g/dl (32.0-35.9); MEAN CELL VOLUME 100.8 fl (80-96); MEAN PLT VOLUME 9.1 fl (7.5-11.1); MONO % 11.7 % (3.8-10.2); NEUT % 53.1 % (42.8-82.8); PLATELET COUNT 152 10^3/uL (134-434); RBC 4.41 M/mm3 (4.00-5.60); RDW 16.8 % (11.9-15.9)
[2021-03-28 17:06] LABS: EPI CELLS 6 /uL (0-25.1); HYALINE CASTS 1 /uL (0-3.1); PH,URINE 5.5 (5.0-8.0); URINE APPEARANCE CLOUDY; URINE BILIRUBIN 1+ (NEGATIVE); URINE COLOR RED; URINE GLUCOSE (UA) 1+ (NEGATIVE); URINE KETONE NEGATIVE (NEGATIVE); URINE LEUK ESTERASE 1+ (NEGATIVE); URINE NITRITE POSITIVE (NEGATIVE); URINE PROTEIN 2+ (NEGATIVE); URINE RBC 22297 /uL (0-23.9); URINE WBC 72 /uL (0-25.8)
[2021-03-28] MEDS ORDERED: CEFTRIAXONE 1 GM in DEXTROSE 5%-WATER - 50 ML IVPB ONE (17:06)
[2021-03-28 17:17] LABS: CHLORIDE 101 mmol/L (98-107); SODIUM 141 mmol/L (136-145)
[2021-03-28 17:19] LABS: CALCIUM 8.9 mg/dL (8.5-10.1); LIPASE 214 U/L (73-393)
[2021-03-28 17:20] LABS: ANION GAP 9 MMOL/L (8-16); CO2 31 mmol/L (21-32); GLUCOSE,RANDOM 98 mg/dL (74-106)
[2021-03-28 17:22] LABS: CREATININE 0.8 mg/dL (0.55-1.3); SGOT/AST 234 U/L (15-37); SGPT/ALT 138 U/L (13-61); URINE BACTERIA 2 /uL (0-1359)
[2021-03-28 17:24] LABS: BILIRUBIN,TOTAL 0.8 mg/dL (0.2-1); TOT PROT 8.2 g/dl (6.4-8.2)
[2021-03-28 17:25] LABS: ALK PHOS 92 U/L (45-117)
[2021-03-28] MEDS ORDERED: CEFTRIAXONE 1 GM/50 ML BAG ONE (19:15)
[2021-03-28] MEDS ORDERED: TAMSULOSIN HCL 0.4 MG CAP PO ONE (22:05)
[2021-03-28] MEDS ORDERED: ACETAMINOPHEN 1000 MG/100 ML VIAL IVPB PRN (22:06)
[2021-03-28] MEDS ORDERED: KETOROLAC TROMETHAMINE 30 MG/1 ML VIAL IVPUSH PRN (22:06)
[2021-03-28] MEDS ORDERED: TAMSULOSIN HCL 0.4 MG CAP ONE (22:31)
[2021-03-28] MEDS: BUDESONIDE/FORMETEROL FUMARATE 160/4.5 mcg INHALER IH SCH (22:40)
[2021-03-28] MEDS ORDERED: ALBUTEROL SO4 2.5/IPRATROPIUM 0.5 INH SOL 3 ML VIAL.NEB. NEB ONE ×2 (22:51→23:01)
[2021-03-28 23:39] LABS: INR 0.96 (0.83-1.09); PROTHROMBIN TIME (PATIENT) 11.2 SEC (9.7-13.0)
[2021-03-29] MEDS ORDERED: morphine SULFATE 4 MG/ML VIAL IVPUSH PRN ×2 (00:01→15:33)
[2021-03-29] MEDS ORDERED: LORazepam 2 MG/ML SDV VIAL IVPUSH PRN ×2 (00:03→15:33)
[2021-03-29] MEDS ORDERED: FOLIC ACID INJECTION - 1 MG, THIAMINE HCL 100 MG in SODIUM CHLORIDE 998.8 ML IVPB ONE (00:45)
[2021-03-29] MEDS ORDERED: methylPREDNISolone NA SUCC 40 MG/1 ML VIAL ONE (01:29)
[2021-03-29] MEDS: methylPREDNISolone NA SUCC 40 MG/1 ML VIAL IVPUSH SCH ×2 (01:50→10:45)
[2021-03-29 02:24] LABS: HEMATOCRIT 40.3 % (35.4-49); HEMOGLOBIN 13.8 GM/dL (11.7-16.9); MCH 34.2 pg (25.7-33.7); MCHC 34.4 g/dl (32.0-35.9); MEAN CELL VOLUME 99.5 fl (80-96); MEAN PLT VOLUME 8.6 fl (7.5-11.1); PLATELET COUNT 125 10^3/uL (134-434); RBC 4.05 M/mm3 (4.00-5.60); RDW 16.4 % (11.9-15.9); WHITE BLOOD COUNT 6.2 K/mm3 (4.0-10.0)
[2021-03-29 09:06] LABS: HEMATOCRIT 38.3 % (35.4-49); HEMOGLOBIN 13.1 GM/dL (11.7-16.9); MCH 34.6 pg (25.7-33.7); MCHC 34.3 g/dl (32.0-35.9); MEAN CELL VOLUME 100.9 fl (80-96); MEAN PLT VOLUME 9.3 fl (7.5-11.1); PLATELET COUNT 122 10^3/uL (134-434); RBC 3.79 M/mm3 (4.00-5.60); RDW 16.5 % (11.9-15.9); WHITE BLOOD COUNT 4.8 K/mm3 (4.0-10.0)
[2021-03-29 09:29] LABS: CALCIUM 8.4 mg/dL (8.5-10.1)
[2021-03-29 09:30] LABS: BLOOD UREA NITROGEN 8.7 mg/dL (7-18)
[2021-03-29 09:32] LABS: PHOSPHOROUS 3.9 mg/dL (2.5-4.9); URIC ACID 4.3 mg/dL (2.6-7.2)
[2021-03-29 09:33] LABS: CREATININE 0.6 mg/dL (0.55-1.3)
[2021-03-29 09:34] LABS: BILIRUBIN,TOTAL 0.9 mg/dL (0.2-1); TOT PROT 6.7 g/dl (6.4-8.2)
[2021-03-29 09:42] LABS: ALBUMIN 3.2 g/dl (3.4-5.0)
[2021-03-29] MEDS ORDERED: NICOTINE 14 MG/24 HOURS TOPICAL PATCH TD SCH (10:00)
[2021-03-29] MEDS ORDERED: CEFTRIAXONE 1 GM in DEXTROSE 5%-WATER - 50 ML IVPB SCH (10:00)
[2021-03-29] MEDS ORDERED: LORazepam 1 MG TABLET PO PRN ×2 (10:06→15:33)
[2021-03-29] MEDS ORDERED: DEXTROSE 5%-WATER - 50 ML IVPB ONE (10:26)
[2021-03-29] MEDS ORDERED: cefTRIAXone SODIUM 1 GM VIAL ONE (10:26)
[2021-03-29] MEDS ORDERED: LORazepam 1 MG TABLET PO SCH (11:00)
[2021-03-29] MEDS ORDERED: PT OWN MED DRAWER 7, Y5N ONE (11:39)
[2021-03-29] MEDS: BUDESONIDE/FORMETEROL FUMARATE 160/4.5 mcg INHALER IH SCH ×2 (11:54→22:26)
[2021-03-29] MEDS ORDERED: MIDAZOLAM HCL 2 MG/2 ML SINGLE DOSE VIAL ONE ×2 (14:08→14:43)
[2021-03-29] MEDS ORDERED: PROPOFOL 20 ML ONE ×2 (14:08)
[2021-03-29] MEDS ORDERED: SUCCINYLCHOLINE CHLORIDE 200 MG/10 ML SYRINGE ONE (14:09)
[2021-03-29] MEDS ORDERED: BUPIVACAINE HCL/PF 0.5% (5MG/ML) 10 ML VIAL ONE (14:09)
[2021-03-29] MEDS ORDERED: ceFAZolin SODIUM 1 GM VIAL IVPB ONE (14:19)
[2021-03-29] MEDS ORDERED: ceFAZolin SODIUM 1 GM VIAL ONE (14:19)
[2021-03-29] MEDS ORDERED: ACETAMINOPHEN 1000 MG/100 ML VIAL IVPB PRN (15:33)
[2021-03-29] MEDS: LORazepam 1 MG TABLET PO SCH ×2 (18:03→22:26)
[2021-03-29] MEDS: LACTATED RINGERS SOLUTION 1,000 ML IV SCH (18:17)
[2021-03-30] MEDS: LACTATED RINGERS SOLUTION 1,000 ML IV SCH ×3 (02:25→21:03)
[2021-03-30] MEDS: LORazepam 1 MG TABLET PO SCH ×4 (05:14→22:05)
[2021-03-30] MEDS ORDERED: TAMSULOSIN HCL 0.4 MG CAP PO SCH (08:30)
[2021-03-30] MEDS ORDERED: DEXTROSE 5%-WATER - 50 ML IVPB ONE (08:59)
[2021-03-30] MEDS ORDERED: cefTRIAXone SODIUM 1 GM VIAL ONE (08:59)
[2021-03-30] MEDS: FINASTERIDE 5 MG TABLET (FP) PO SCH (09:11)
[2021-03-30] MEDS: TAMSULOSIN HCL 0.4 MG CAP PO SCH (09:11)
[2021-03-30 09:12] LABS: BASO % 0.1 % (0-2.0); EOS % 0.1 % (0-4.5); HEMATOCRIT 40.5 % (35.4-49); HEMOGLOBIN 14.1 GM/dL (11.7-16.9); LYMPH % 17.6 % (8-40); MCHC 34.8 g/dl (32.0-35.9); MEAN CELL VOLUME 100.5 fl (80-96); MEAN PLT VOLUME 9.5 fl (7.5-11.1); MONO % 10.3 % (3.8-10.2); NEUT % 71.9 % (42.8-82.8); PLATELET COUNT 125 10^3/uL (134-434); RBC 4.03 M/mm3 (4.00-5.60); RDW 16.7 % (11.9-15.9); WHITE BLOOD COUNT 9.3 K/mm3 (4.0-10.0)
[2021-03-30] MEDS: BUDESONIDE/FORMETEROL FUMARATE 160/4.5 mcg INHALER IH SCH ×2 (09:12→21:01)
[2021-03-30] MEDS: methylPREDNISolone NA SUCC 40 MG/1 ML VIAL IVPUSH SCH (09:12)
[2021-03-30] MEDS: NICOTINE 14 MG/24 HOURS TOPICAL PATCH TD SCH (09:12)
[2021-03-30] MEDS: CEFTRIAXONE 1 GM in DEXTROSE 5%-WATER - 50 ML IVPB SCH (09:12)
[2021-03-30 09:46] LABS: BLOOD UREA NITROGEN 13.9 mg/dL (7-18); CALCIUM 9.5 mg/dL (8.5-10.1)
[2021-03-30 09:47] LABS: ALBUMIN 3.3 g/dl (3.4-5.0)
[2021-03-30 09:50] LABS: CREATININE 0.6 mg/dL (0.55-1.3)
[2021-03-30 09:51] LABS: TOT PROT 7.2 g/dl (6.4-8.2)
[2021-03-30] MEDS ORDERED: FINASTERIDE 5 MG TABLET (FP) PO SCH (10:00)
[2021-03-30] MEDS: PANTOPRAZOLE 40 MG TABLET PO SCH (11:07)
[2021-03-30] MEDS: HEPARIN NA (PORCINE) 5,000 UNITS/ML 1ML VIAL SQ SCH ×2 (13:41→21:00)
[2021-03-30] MEDS ORDERED: guaiFENesin 200 MG/10 ML 10 ML UNIT-DOSE CUPS PO ONE (14:15)
[2021-03-30 14:42] VITALS: BMI 19.6
[2021-03-31] MEDS ORDERED: LORazepam 1 MG TABLET PO SCH (05:00)
[2021-03-31] MEDS: HEPARIN NA (PORCINE) 5,000 UNITS/ML 1ML VIAL SQ SCH ×3 (05:08→21:27)
[2021-03-31] MEDS: LORazepam 1 MG TABLET PO SCH ×4 (05:08→23:05)
[2021-03-31] MEDS ORDERED: cefTRIAXone SODIUM 1 GM VIAL ONE (09:20)
[2021-03-31] MEDS ORDERED: DEXTROSE 5%-WATER - 50 ML IVPB ONE (09:20)
[2021-03-31 09:28] LABS: BASO % 0.2 % (0-2.0); EOS % 0.6 % (0-4.5); HEMATOCRIT 38.3 % (35.4-49); HEMOGLOBIN 13.4 GM/dL (11.7-16.9); LYMPH % 21.3 % (8-40); MCH 34.5 pg (25.7-33.7); MCHC 34.9 g/dl (32.0-35.9); MEAN CELL VOLUME 98.7 fl (80-96); MEAN PLT VOLUME 9.5 fl (7.5-11.1); MONO % 9.7 % (3.8-10.2); NEUT % 68.2 % (42.8-82.8); PLATELET COUNT 108 10^3/uL (134-434); RBC 3.88 M/mm3 (4.00-5.60); RDW 15.8 % (11.9-15.9); WHITE BLOOD COUNT 7.2 K/mm3 (4.0-10.0)
[2021-03-31] MEDS: PANTOPRAZOLE 40 MG TABLET PO SCH (09:30)
[2021-03-31] MEDS: TAMSULOSIN HCL 0.4 MG CAP PO SCH (09:31)
[2021-03-31] MEDS: NICOTINE 14 MG/24 HOURS TOPICAL PATCH TD SCH (09:31)
[2021-03-31] MEDS: CEFTRIAXONE 1 GM in DEXTROSE 5%-WATER - 50 ML IVPB SCH (09:31)
[2021-03-31] MEDS: methylPREDNISolone NA SUCC 40 MG/1 ML VIAL IVPUSH SCH (09:31)
[2021-03-31] MEDS: FINASTERIDE 5 MG TABLET (FP) PO SCH (09:33)
[2021-03-31] MEDS: BUDESONIDE/FORMETEROL FUMARATE 160/4.5 mcg INHALER IH SCH ×2 (09:53→21:28)
[2021-03-31 09:56] LABS: ALBUMIN 2.8 g/dl (3.4-5.0); BLOOD UREA NITROGEN 9.4 mg/dL (7-18)
[2021-03-31 09:58] LABS: CALCIUM 9.1 mg/dL (8.5-10.1)
[2021-03-31 09:59] LABS: CREATININE 0.5 mg/dL (0.55-1.3)
[2021-03-31] MEDS: LACTATED RINGERS SOLUTION 1,000 ML IV SCH ×2 (10:00→19:45)
[2021-03-31 10:01] LABS: BILIRUBIN,TOTAL 0.8 mg/dL (0.2-1); TOT PROT 6.2 g/dl (6.4-8.2)
[2021-03-31] MEDS: THIAMINE HCL 100 MG TABLET (FP) PO SCH (11:20)
[2021-04-01] MEDS ORDERED: LORazepam 0.5 MG TABLET PO PRN ×2
[2021-04-01] MEDS ORDERED: LORazepam 0.5 MG TABLET PO SCH (05:00)
[2021-04-01] MEDS: LORazepam 0.5 MG TABLET PO SCH ×4 (06:18→22:20)
[2021-04-01] MEDS: HEPARIN NA (PORCINE) 5,000 UNITS/ML 1ML VIAL SQ SCH ×3 (06:19→22:20)
[2021-04-01] MEDS ORDERED: PT OWN MED DRAWER 7, Y5N ONE (08:59)
[2021-04-01] MEDS ORDERED: cefTRIAXone SODIUM 1 GM VIAL ONE (08:59)
[2021-04-01] MEDS ORDERED: DEXTROSE 5%-WATER - 50 ML IVPB ONE (09:00)
[2021-04-01] MEDS: TAMSULOSIN HCL 0.4 MG CAP PO SCH (09:04)
[2021-04-01] MEDS: THIAMINE HCL 100 MG TABLET (FP) PO SCH (09:06)
[2021-04-01] MEDS: FINASTERIDE 5 MG TABLET (FP) PO SCH (09:06)
[2021-04-01] MEDS: CEFTRIAXONE 1 GM in DEXTROSE 5%-WATER - 50 ML IVPB SCH (09:06)
[2021-04-01] MEDS: PANTOPRAZOLE 40 MG TABLET PO SCH (09:06)
[2021-04-01] MEDS: BUDESONIDE/FORMETEROL FUMARATE 160/4.5 mcg INHALER IH SCH ×2 (09:08→22:20)
[2021-04-01] MEDS: methylPREDNISolone NA SUCC 40 MG/1 ML VIAL IVPUSH SCH (09:09)
[2021-04-01] MEDS: NICOTINE 14 MG/24 HOURS TOPICAL PATCH TD SCH (09:10)
[2021-04-01 10:00] LABS: HEMATOCRIT 41.3 % (35.4-49); HEMOGLOBIN 14.2 GM/dL (11.7-16.9); MCH 34.7 pg (25.7-33.7); MCHC 34.3 g/dl (32.0-35.9); MEAN CELL VOLUME 101.3 fl (80-96); MEAN PLT VOLUME 10.7 fl (7.5-11.1); PLATELET COUNT 130 10^3/uL (134-434); RBC 4.08 M/mm3 (4.00-5.60); RDW 16.3 % (11.9-15.9); WHITE BLOOD COUNT 6.5 K/mm3 (4.0-10.0)
[2021-04-01 10:22] LABS: CALCIUM 9.3 mg/dL (8.5-10.1)
[2021-04-01 10:23] LABS: ALBUMIN 3.2 g/dl (3.4-5.0); BLOOD UREA NITROGEN 9.4 mg/dL (7-18)
[2021-04-01 10:26] LABS: CREATININE 0.6 mg/dL (0.55-1.3)
[2021-04-01 10:27] LABS: BILIRUBIN,TOTAL 1.1 mg/dL (0.2-1); TOT PROT 6.9 g/dl (6.4-8.2)
[2021-04-01] MEDS ORDERED: POTASSIUM CHLORIDE TABS 20 MEQ TABLET.ER (FP) PO ONE (12:25)
[2021-04-01 13:11] LABS: MAGNESIUM 1.9 mg/dL (1.8-2.4)
[2021-04-01 13:15] LABS: PHOSPHOROUS 2.7 mg/dL (2.5-4.9)
[2021-04-01] MEDS: LACTATED RINGERS SOLUTION 1,000 ML IV SCH ×2 (16:56→16:57)
[2021-04-01] MEDS ORDERED: ALBUTEROL SO4 2.5/IPRATROPIUM 0.5 INH SOL 3 ML VIAL.NEB. NEB PRN (18:00)
[2021-04-02] MEDS ORDERED: LORazepam 0.5 MG TABLET PO ONE ×2 (05:00)
[2021-04-02] MEDS: HEPARIN NA (PORCINE) 5,000 UNITS/ML 1ML VIAL SQ SCH ×3 (06:14→21:13)
[2021-04-02 08:58] LABS: BASO % 0.4 % (0-2.0); EOS % 2.2 % (0-4.5); HEMATOCRIT 37.4 % (35.4-49); HEMOGLOBIN 12.9 GM/dL (11.7-16.9); LYMPH % 35.2 % (8-40); MCHC 34.6 g/dl (32.0-35.9); MEAN CELL VOLUME 101.2 fl (80-96); MEAN PLT VOLUME 10.3 fl (7.5-11.1); MONO % 14.2 % (3.8-10.2); PLATELET COUNT 139 10^3/uL (134-434); RBC 3.69 M/mm3 (4.00-5.60); RDW 16.3 % (11.9-15.9); WHITE BLOOD COUNT 5.9 K/mm3 (4.0-10.0)
[2021-04-02] MEDS ORDERED: cefTRIAXone SODIUM 1 GM VIAL ONE (09:16)
[2021-04-02] MEDS ORDERED: DEXTROSE 5%-WATER - 50 ML IVPB ONE (09:17)
[2021-04-02 09:20] LABS: CALCIUM 9.1 mg/dL (8.5-10.1)
[2021-04-02 09:21] LABS: BLOOD UREA NITROGEN 12.5 mg/dL (7-18)
[2021-04-02 09:24] LABS: CREATININE 0.5 mg/dL (0.55-1.3)
[2021-04-02] MEDS: FINASTERIDE 5 MG TABLET (FP) PO SCH (09:40)
[2021-04-02] MEDS: NICOTINE 14 MG/24 HOURS TOPICAL PATCH TD SCH (09:40)
[2021-04-02] MEDS: TAMSULOSIN HCL 0.4 MG CAP PO SCH (09:40)
[2021-04-02] MEDS: methylPREDNISolone NA SUCC 40 MG/1 ML VIAL IVPUSH SCH (09:40)
[2021-04-02] MEDS: PANTOPRAZOLE 40 MG TABLET PO SCH (09:41)
[2021-04-02] MEDS: THIAMINE HCL 100 MG TABLET (FP) PO SCH (09:41)
[2021-04-02] MEDS: BUDESONIDE/FORMETEROL FUMARATE 160/4.5 mcg INHALER IH SCH ×2 (09:41→21:13)
[2021-04-02] MEDS ORDERED: LORazepam 0.5 MG TABLET PO PRN (12:10)
[2021-04-02] MEDS: AMOX TR/POT CLAV 500MG/125MG TABLETS (FP) PO SCH (16:32)
[2021-04-02] MEDS: predniSONE 20 MG TABLET (UD) PO SCH (21:12)
[2021-04-03] MEDS: HEPARIN NA (PORCINE) 5,000 UNITS/ML 1ML VIAL SQ SCH (05:23)
[2021-04-03 08:42] LABS: BASO % 0.3 % (0-2.0); EOS % 0.5 % (0-4.5); HEMATOCRIT 39.1 % (35.4-49); HEMOGLOBIN 13.4 GM/dL (11.7-16.9); LYMPH % 24.7 % (8-40); MCH 35.1 pg (25.7-33.7); MCHC 34.4 g/dl (32.0-35.9); MEAN PLT VOLUME 9.2 fl (7.5-11.1); MONO % 13.4 % (3.8-10.2); NEUT % 61.1 % (42.8-82.8); PLATELET COUNT 198 10^3/uL (134-434); RBC 3.83 M/mm3 (4.00-5.60); RDW 16.2 % (11.9-15.9); WHITE BLOOD COUNT 6.8 K/mm3 (4.0-10.0)
[2021-04-03 09:36] LABS: CALCIUM 9.8 mg/dL (8.5-10.1)
[2021-04-03 09:37] LABS: BLOOD UREA NITROGEN 15.6 mg/dL (7-18); MAGNESIUM 2.2 mg/dL (1.8-2.4)
[2021-04-03 09:40] LABS: CREATININE 0.7 mg/dL (0.55-1.3)
[2021-04-03] MEDS: FINASTERIDE 5 MG TABLET (FP) PO SCH (09:48)
[2021-04-03] MEDS: TAMSULOSIN HCL 0.4 MG CAP PO SCH (09:48)
[2021-04-03] MEDS: NICOTINE 14 MG/24 HOURS TOPICAL PATCH TD SCH (09:48)
[2021-04-03] MEDS: THIAMINE HCL 100 MG TABLET (FP) PO SCH (09:48)
[2021-04-03] MEDS: PANTOPRAZOLE 40 MG TABLET PO SCH (09:48)
[2021-04-03] MEDS: predniSONE 20 MG TABLET (UD) PO SCH (09:48)
[2021-04-03] MEDS: AMOX TR/POT CLAV 500MG/125MG TABLETS (FP) PO SCH (09:48)
[2021-04-03] MEDS: BUDESONIDE/FORMETEROL FUMARATE 160/4.5 mcg INHALER IH SCH (09:49)
[2021-04-03 13:58] VITALS: BP 131/74; PULSE 80; TEMP 98.3
== END 2021-04-03 14:31 | disposition home or self-care (01) | DRG 659 ==
LOC: JER 13:22 → JERBED 20:27 → J8W 03-29 03:45
PROVIDERS: ADMIT Internal Medicine
PROC: 0T768DZ Dilation of Right Ureter with Intraluminal Device, Via Natural or Artificial Opening Endoscopic (ICD-10-PCS; principal; 2021-03-29 13:00)
DX: N13.6 Pyonephrosis (principal); E43 Unspecified severe protein-calorie malnutrition; F10.230 Alcohol dependence with withdrawal, uncomplicated; J44.1 Chronic obstructive pulmonary disease with (acute) exacerbation; K52.9 Noninfective gastroenteritis and colitis, unspecified; K76.0 Fatty (change of) liver, not elsewhere classified; R74.01 Elevation of levels of liver transaminase levels; E78.5 Hyperlipidemia, unspecified; N40.0 Benign prostatic hyperplasia without lower urinary tract symptoms; N13.9 Obstructive and reflux uropathy, unspecified; E87.6 Hypokalemia; Z68.20 Body mass index [BMI] 20.0-20.9, adult; R26.81 Unsteadiness on feet
CPT/HCPCS: 36415; 71046-TC-FY; 74018-TC-FY; 74177-TC; 76000-TC-FY; 80048; 80053; 81003; 82550; 82553; 83690; 83735; 84100; 84484; 84550; 85025; 85027; 85610; 85730; 86705; 86707; 86708; 86850; 86900; 86901; 87040; 87086; 87350; 87517; 87522; 93005; 93010; 94760; 97116-GP; 97161-GP; 99285-25; C9803; J1644; Q9967; U0003; U0005

== ENCOUNTER 2021-04-03 18:09 | Observation (INO) | payer OTHER ==
[2021-04-03] MEDS ORDERED: SODIUM CHLORIDE 0.9% 500 ML INFUS.BAG IV ONE (21:54)
[2021-04-03 21:57] LABS: BASO % 0.2 % (0-2.0); EOS % 0.6 % (0-4.5); HEMATOCRIT 38.1 % (35.4-49); HEMOGLOBIN 13.2 GM/dL (11.7-16.9); LYMPH % 15.2 % (8-40); MCH 35.2 pg (25.7-33.7); MCHC 34.6 g/dl (32.0-35.9); MEAN CELL VOLUME 101.6 fl (80-96); MEAN PLT VOLUME 8.8 fl (7.5-11.1); MONO % 16.6 % (3.8-10.2); NEUT % 67.4 % (42.8-82.8); PLATELET COUNT 217 10^3/uL (134-434); RBC 3.75 M/mm3 (4.00-5.60); RDW 16.2 % (11.9-15.9)
[2021-04-03 22:11] LABS: CHLORIDE 104 mmol/L (98-107); SODIUM 139 mmol/L (136-145)
[2021-04-03 22:13] LABS: CALCIUM 9.3 mg/dL (8.5-10.1)
[2021-04-03 22:14] LABS: ALBUMIN 3.5 g/dl (3.4-5.0); ANION GAP 4 MMOL/L (8-16); BLOOD UREA NITROGEN 19.7 mg/dL (7-18); CO2 31 mmol/L (21-32); GLUCOSE,RANDOM 94 mg/dL (74-106)
[2021-04-03 22:17] LABS: CREATININE 0.8 mg/dL (0.55-1.3); SGOT/AST 112 U/L (15-37); SGPT/ALT 147 U/L (13-61)
[2021-04-03 22:18] LABS: BILIRUBIN,TOTAL 0.6 mg/dL (0.2-1); TOT PROT 7.1 g/dl (6.4-8.2)
[2021-04-03 22:19] LABS: ALK PHOS 78 U/L (45-117)
[2021-04-03] MEDS ORDERED: ACETAMINOPHEN 1000 MG/100 ML VIAL IVPB ONE (23:30)
[2021-04-03] MEDS ORDERED: ACETAMINOPHEN INJECTION 100 ML IVPB ONE (23:39)
[2021-04-04 01:07] LABS: COCAINE, UR NEGATIVE (NEGATIVE); URINE BENZODIAZEPINES NEGATIVE (NEGATIVE)
[2021-04-04 01:08] LABS: PHENCYCLIDINE,URINE NEGATIVE (NEGATIVE)
[2021-04-04 01:13] LABS: METHADONE, UR NEGATIVE (NEGATIVE); OPIATES, URI NEGATIVE (NEGATIVE); URINE AMPHETAMINES NEGATIVE (NEGATIVE); URINE BARBITURATES NEGATIVE (NEGATIVE)
[2021-04-04] MEDS ORDERED: DEXTROSE 5%-NORMAL SALINE 1,000 ML IV SCH (04:30)
[2021-04-04] MEDS ORDERED: SODIUM CHLORIDE 1,000 ML IV SCH (04:30)
[2021-04-04 07:50] LABS: HEMATOCRIT 38.4 % (35.4-49); HEMOGLOBIN 13.1 GM/dL (11.7-16.9); MCH 35.1 pg (25.7-33.7); MEAN PLT VOLUME 8.5 fl (7.5-11.1); PLATELET COUNT 236 10^3/uL (134-434); RBC 3.73 M/mm3 (4.00-5.60); RDW 16.5 % (11.9-15.9); WHITE BLOOD COUNT 8.2 K/mm3 (4.0-10.0)
[2021-04-04 08:09] LABS: ALBUMIN 3.3 g/dl (3.4-5.0); BLOOD UREA NITROGEN 17.2 mg/dL (7-18); CALCIUM 8.9 mg/dL (8.5-10.1); CO2 31 mmol/L (21-32); GLUCOSE,RANDOM 85 mg/dL (74-106); MAGNESIUM 2.1 mg/dL (1.8-2.4)
[2021-04-04 08:12] LABS: CREATININE 0.7 mg/dL (0.55-1.3); PHOSPHOROUS 3.5 mg/dL (2.5-4.9); SGOT/AST 129 U/L (15-37); SGPT/ALT 160 U/L (13-61)
[2021-04-04 08:14] LABS: BILIRUBIN,TOTAL 0.9 mg/dL (0.2-1); TOT PROT 6.8 g/dl (6.4-8.2)
[2021-04-04 08:15] LABS: ALK PHOS 64 U/L (45-117)
[2021-04-04 08:26] LABS: ANION GAP 4 MMOL/L (8-16); CHLORIDE 106 mmol/L (98-107); SODIUM 141 mmol/L (136-145)
[2021-04-04] MEDS ORDERED: FOLIC ACID 1 MG TABLET (FP) ONE (08:42)
[2021-04-04] MEDS ORDERED: THIAMINE HCL 100 MG TABLET (FP) ONE ×2 (08:42→10:32)
[2021-04-04] MEDS ORDERED: ENOXAPARIN NA (PORCINE) 40 MG/0.4 ML DISP.SYRIN SQ ONE (08:43)
[2021-04-04 08:53] LABS: CHOLESTEROL 230 mg/dL (50-200)
[2021-04-04 08:54] LABS: LDL CHOLESTEROL (ONLY SJRH) 109 mg/dL (5-100); TRIGLYCERIDES 69 mg/dL (0-150)
[2021-04-04 08:57] LABS: HDL CHOLESTEROL 88 mg/dL (40-60)
[2021-04-04 08:58] LABS: N-TERMINAL BNP 82.5 pg/ml (5-125)
[2021-04-04] MEDS: FOLIC ACID 1 MG TABLET (FP) PO SCH (09:00)
[2021-04-04] MEDS: ENOXAPARIN NA (PORCINE) 40 MG/0.4 ML DISP.SYRIN SQ SCH (09:10)
[2021-04-04] MEDS ORDERED: THIAMINE HCL 100 MG TABLET (FP) PO SCH ×2 (10:00)
[2021-04-04] MEDS ORDERED: [UNRECOGNIZED DRUG - OTHER] PO SCH (10:00)
[2021-04-04] MEDS ORDERED: IPRATROPIUM PO SCH (10:00)
[2021-04-04] MEDS ORDERED: ALBUTEROL SULFATE PO SCH (10:00)
[2021-04-04] MEDS: BUDESONIDE/FORMETEROL FUMARATE 160/4.5 mcg INHALER IH SCH ×2 (11:00→23:41)
[2021-04-04] MEDS ORDERED: ALBUTEROL SO4 HFA INHALER IH PRN (11:08)
[2021-04-04] MEDS: TIOTROPIUM BROMIDE 2.5 MCG (SPIRIVA) RESPIMAT INHALER IH SCH (12:35)
[2021-04-05 00:43] VITALS: BMI 19.8
[2021-04-05 06:57] LABS: BASO % 1.5 % (0-2.0); EOS % 6.5 % (0-4.5); HEMATOCRIT 35.8 % (35.4-49); HEMOGLOBIN 12.3 GM/dL (11.7-16.9); LYMPH % 28.6 % (8-40); MCHC 34.3 g/dl (32.0-35.9); MEAN CELL VOLUME 102.2 fl (80-96); MEAN PLT VOLUME 8.7 fl (7.5-11.1); MONO % 16.6 % (3.8-10.2); NEUT % 46.8 % (42.8-82.8); PLATELET COUNT 251 10^3/uL (134-434); RDW 16.2 % (11.9-15.9); WHITE BLOOD COUNT 7.9 K/mm3 (4.0-10.0)
[2021-04-05 07:13] LABS: CALCIUM 8.7 mg/dL (8.5-10.1)
[2021-04-05 07:14] LABS: ALBUMIN 2.8 g/dl (3.4-5.0); MAGNESIUM 2.2 mg/dL (1.8-2.4)
[2021-04-05 07:17] LABS: CREATININE 0.7 mg/dL (0.55-1.3); PHOSPHOROUS 3.5 mg/dL (2.5-4.9)
[2021-04-05 07:18] LABS: BILIRUBIN,TOTAL 0.9 mg/dL (0.2-1); TOT PROT 5.8 g/dl (6.4-8.2)
[2021-04-05] MEDS: NICOTINE 7 MG/24 HOURS TOPICAL PATCH TD SCH ×3 (09:52→09:54)
[2021-04-05] MEDS: FINASTERIDE 5 MG TABLET (FP) PO SCH (09:53)
[2021-04-05] MEDS: ENOXAPARIN NA (PORCINE) 40 MG/0.4 ML DISP.SYRIN SQ SCH (09:53)
[2021-04-05] MEDS: FOLIC ACID 1 MG TABLET (FP) PO SCH (09:53)
[2021-04-05] MEDS: THIAMINE HCL 100 MG TABLET (FP) PO SCH (09:53)
[2021-04-05] MEDS: TAMSULOSIN HCL 0.4 MG CAP PO SCH (09:53)
[2021-04-05] MEDS ORDERED: predniSONE 10 MG TABLET (UD) PO ONE (10:00)
[2021-04-05] MEDS ORDERED: predniSONE 5 MG TABLET (UD) PO SCH (10:00)
[2021-04-05] MEDS: AMOX TR/POT CLAV 500MG/125MG TABLETS (FP) PO SCH ×2 (10:54→17:18)
[2021-04-05] MEDS: BUDESONIDE/FORMETEROL FUMARATE 160/4.5 mcg INHALER IH SCH ×2 (10:54→21:40)
[2021-04-05] MEDS: TIOTROPIUM BROMIDE 2.5 MCG (SPIRIVA) RESPIMAT INHALER IH SCH (10:55)
[2021-04-06 06:54] LABS: HEMOGLOBIN 11.9 GM/dL (11.7-16.9); MCH 35.6 pg (25.7-33.7); MCHC 34.9 g/dl (32.0-35.9); MEAN PLT VOLUME 8.6 fl (7.5-11.1); PLATELET COUNT 285 10^3/uL (134-434); RBC 3.33 M/mm3 (4.00-5.60); WHITE BLOOD COUNT 7.7 K/mm3 (4.0-10.0)
[2021-04-06 07:26] LABS: CALCIUM 8.9 mg/dL (8.5-10.1)
[2021-04-06 07:27] LABS: ALBUMIN 2.7 g/dl (3.4-5.0); BLOOD UREA NITROGEN 11.6 mg/dL (7-18)
[2021-04-06 07:30] LABS: CREATININE 0.7 mg/dL (0.55-1.3)
[2021-04-06 07:32] LABS: BILIRUBIN,TOTAL 0.7 mg/dL (0.2-1); TOT PROT 5.8 g/dl (6.4-8.2)
[2021-04-06] MEDS ORDERED: PT OWN MED DRAWER 7, Y5N ONE (08:07)
[2021-04-06] MEDS: AMOX TR/POT CLAV 500MG/125MG TABLETS (FP) PO SCH (08:14)
[2021-04-06] MEDS: TAMSULOSIN HCL 0.4 MG CAP PO SCH (08:14)
[2021-04-06] MEDS ORDERED: predniSONE 5 MG TABLET (UD) PO ONE (10:00)
[2021-04-06] MEDS: THIAMINE HCL 100 MG TABLET (FP) PO SCH (10:27)
[2021-04-06] MEDS: FOLIC ACID 1 MG TABLET (FP) PO SCH (10:28)
[2021-04-06] MEDS: FINASTERIDE 5 MG TABLET (FP) PO SCH (10:28)
[2021-04-06] MEDS: ENOXAPARIN NA (PORCINE) 40 MG/0.4 ML DISP.SYRIN SQ SCH (10:28)
[2021-04-06] MEDS: NICOTINE 7 MG/24 HOURS TOPICAL PATCH TD SCH (10:28)
[2021-04-06] MEDS: TIOTROPIUM BROMIDE 2.5 MCG (SPIRIVA) RESPIMAT INHALER IH SCH (10:31)
[2021-04-06] MEDS: BUDESONIDE/FORMETEROL FUMARATE 160/4.5 mcg INHALER IH SCH (10:31)
[2021-04-06 14:48] VITALS: BP 93/57; PULSE 77; TEMP 98.4
[2021-04-07] MEDS ORDERED: predniSONE 10 MG TABLET (UD) PO ONE (10:00)
[2021-04-08] MEDS ORDERED: predniSONE 5 MG TABLET (UD) PO ONE (10:00)
== END 2021-04-06 17:36 | disposition home or self-care (01) ==
LOC: JER 18:09 → JERBED 21:58 → J4S 04-05 00:01
PROC: 3E0337Z Introduction of Electrolytic and Water Balance Substance into Peripheral Vein, Percutaneous Approach (ICD-10-PCS; principal; 2021-04-03)
PROC: 3E033NZ Introduction of Analgesics, Hypnotics, Sedatives into Peripheral Vein, Percutaneous Approach (ICD-10-PCS; 2021-04-03)
PROC: 3E023GC Introduction of Other Therapeutic Substance into Muscle, Percutaneous Approach (ICD-10-PCS; 2021-04-03)
DX: R55 Syncope and collapse (principal); F10.99 Alcohol use, unspecified with unspecified alcohol-induced disorder; R94.5 Abnormal results of liver function studies; J44.9 Chronic obstructive pulmonary disease, unspecified; Q89.3 Situs inversus; N20.0 Calculus of kidney; Z96.0 Presence of urogenital implants; F17.210 Nicotine dependence, cigarettes, uncomplicated
CPT/HCPCS: 36415; 70450-TC; 71046-TC-FY; 72125-TC; 80053; 80061; 80307; 82533; 82550; 83036; 83735; 83880; 84100; 84443; 84484; 85025; 85027; 87086; 93005; 93010; 93306-TC; 93880-TC; 95816; 97116-GP; 97161-GP; 99285-25; C9803; G0378; J0131; U0003; U0005

== ENCOUNTER 2021-06-02 10:57 | Emergency (ER) | payer OTHER ==
[2021-06-02 12:07] VITALS: TEMP 98.3; BMI 20.8
[2021-06-02] MEDS ORDERED: LACTATED RINGERS SOLUTION 1000 ML INFUS.BAG IV ONE (13:08)
[2021-06-02] MEDS ORDERED: IBUPROFEN 400 MG TABLET (FP) PO ONE ×2 (13:17→13:41)
[2021-06-02 14:09] LABS: EPI CELLS 3 /uL (0-25.1); HYALINE CASTS 1 /uL (0-3.1); URINE APPEARANCE CLEAR; URINE BACTERIA 3 /uL (0-1359); URINE BILIRUBIN NEGATIVE (NEGATIVE); URINE COLOR YELLOW; URINE GLUCOSE (UA) NEGATIVE (NEGATIVE); URINE KETONE 1+ (NEGATIVE); URINE LEUK ESTERASE NEGATIVE (NEGATIVE); URINE NITRITE NEGATIVE (NEGATIVE); URINE PROTEIN TRACE (NEGATIVE); URINE RBC 14 /uL (0-23.9); URINE UROBILINOGEN 0.2 mg/dL (0.2-1.0); URINE WBC 9 /uL (0-25.8)
[2021-06-02 15:04] LABS: BASO % 0.8 % (0-2.0); EOS % 0.7 % (0-4.5); HEMATOCRIT 44.2 % (35.4-49); HEMOGLOBIN 15.3 GM/dL (11.7-16.9); LYMPH % 19.6 % (8-40); MCH 34.1 pg (25.7-33.7); MCHC 34.6 g/dl (32.0-35.9); MEAN CELL VOLUME 98.5 fl (80-96); MEAN PLT VOLUME 8.3 fl (7.5-11.1); NEUT % 68.9 % (42.8-82.8); PLATELET COUNT 293 10^3/uL (134-434); RBC 4.49 M/mm3 (4.00-5.60); RDW 12.9 % (11.9-15.9); WHITE BLOOD COUNT 10.1 K/mm3 (4.0-10.0)
[2021-06-02 15:30] LABS: CHLORIDE 103 mmol/L (98-107); SODIUM 138 mmol/L (136-145)
[2021-06-02 15:34] LABS: ALBUMIN 4.1 g/dl (3.4-5.0); ANION GAP 7 MMOL/L (8-16); BLOOD UREA NITROGEN 21.3 mg/dL (7-18); CO2 28 mmol/L (21-32); GLUCOSE,RANDOM 98 mg/dL (74-106); LIPASE 102 U/L (73-393)
[2021-06-02 15:37] LABS: CREATININE 1.2 mg/dL (0.55-1.3); SGOT/AST 41 U/L (15-37); SGPT/ALT 29 U/L (13-61)
[2021-06-02 15:39] LABS: BILIRUBIN,TOTAL 0.7 mg/dL (0.2-1)
[2021-06-02 15:40] LABS: ALK PHOS 61 U/L (45-117)
[2021-06-02 17:03] VITALS: BP 140/84; PULSE 76
== END 2021-06-02 17:03 | disposition home or self-care (01) ==
LOC: JER 10:57
DX: R10.9 Unspecified abdominal pain (principal)
CPT/HCPCS: 36415; 74176-TC; 80053; 81003; 82550; 82553; 83605; 83690; 84484; 85025; 87086; 93005; 93010; 99285-25; C9803; U0003; U0005

== ENCOUNTER 2021-06-12 07:15 | Day surgery (SDC) | payer OTHER ==
[2021-06-12 07:55] VITALS: BMI 26.6
[2021-06-12] MEDS ORDERED: SODIUM CHLORIDE 0.9% 500 ML INFUS.BAG IV ONE (08:36)
[2021-06-12] MEDS ORDERED: KETOROLAC TROMETHAMINE 30 MG/1 ML VIAL IM ONE (08:36)
[2021-06-12 09:57] LABS: BASO % 1.1 % (0-2.0); EOS % 4.4 % (0-4.5); HEMATOCRIT 39.6 % (35.4-49); LYMPH % 37.5 % (8-40); MCH 32.1 pg (25.7-33.7); MCHC 32.8 g/dl (32.0-35.9); MEAN CELL VOLUME 97.9 fl (80-96); MEAN PLT VOLUME 7.7 fl (7.5-11.1); MONO % 11.6 % (3.8-10.2); NEUT % 45.4 % (42.8-82.8); PLATELET COUNT 378 10^3/uL (134-434); RBC 4.05 M/mm3 (4.00-5.60); RDW 13.1 % (11.9-15.9); WHITE BLOOD COUNT 6.4 K/mm3 (4.0-10.0)
[2021-06-12 09:58] LABS: URINE APPEARANCE CLEAR; URINE BILIRUBIN NEGATIVE (NEGATIVE); URINE COLOR YELLOW; URINE GLUCOSE (UA) NEGATIVE (NEGATIVE); URINE KETONE NEGATIVE (NEGATIVE); URINE LEUK ESTERASE NEGATIVE (NEGATIVE); URINE NITRITE NEGATIVE (NEGATIVE); URINE PROTEIN NEGATIVE (NEGATIVE); URINE UROBILINOGEN 0.2 mg/dL (0.2-1.0)
[2021-06-12 10:06] LABS: INR 1.02 (0.83-1.09); PROTHROMBIN TIME (PATIENT) 11.7 SEC (9.7-13.0)
[2021-06-12 10:08] LABS: ACTIVATED PTT 34.9 SECONDS (25.2-36.5)
[2021-06-12 10:31] LABS: CALCIUM 9.6 mg/dL (8.5-10.1)
[2021-06-12 10:32] LABS: ALBUMIN 3.6 g/dl (3.4-5.0); BLOOD UREA NITROGEN 17.7 mg/dL (7-18)
[2021-06-12] MEDS ORDERED: KETOROLAC TROMETHAMINE 15 MG/ML VIAL ONE (10:32)
[2021-06-12 10:35] LABS: CREATININE 0.9 mg/dL (0.55-1.3)
[2021-06-12 10:38] LABS: BILIRUBIN,TOTAL 0.5 mg/dL (0.2-1); TOT PROT 7.2 g/dl (6.4-8.2)
[2021-06-12] MEDS ORDERED: ACETAMINOPHEN 325 MG TABLET (FP) PO PRN (11:37)
[2021-06-12] MEDS ORDERED: SODIUM CHLORIDE 1,000 ML IV SCH (11:45)
[2021-06-12] MEDS ORDERED: TAMSULOSIN HCL 0.4 MG CAP PO SCH (13:15)
[2021-06-12] MEDS ORDERED: IPRATROPIUM PO SCH (14:00)
[2021-06-12] MEDS ORDERED: ALBUTEROL SULFATE PO SCH (14:00)
[2021-06-12] MEDS ORDERED: [UNRECOGNIZED DRUG - OTHER] PO SCH (14:00)
[2021-06-12] MEDS ORDERED: MIDAZOLAM HCL 2 MG/2 ML SINGLE DOSE VIAL ONE (14:48)
[2021-06-12] MEDS ORDERED: PROPOFOL 20 ML ONE (14:48)
[2021-06-12] MEDS ORDERED: ceFAZolin SODIUM 1 GM VIAL ONE (14:56)
[2021-06-12] MEDS ORDERED: IOHEXOL 300 MG/ML INFUS..BTL IV ONE (15:07)
[2021-06-12] MEDS ORDERED: ONDANSETRON 4 MG/2 ML VIAL IVPUSH PRN (15:37)
[2021-06-12] MEDS ORDERED: KETOROLAC TROMETHAMINE 30 MG/1 ML VIAL ONE (15:43)
[2021-06-12] MEDS ORDERED: DEXAMETHASONE SOD PHOSPHATE 4 MG/1 ML VIAL ONE (15:43)
[2021-06-12 16:59] VITALS: TEMP 97.7
[2021-06-12 19:22] VITALS: BP 132/85; PULSE 72
[2021-06-12] MEDS ORDERED: BUDESONIDE/FORMETEROL FUMARATE 160/4.5 mcg INHALER IH SCH (22:00)
[2021-06-13] MEDS ORDERED: FINASTERIDE 5 MG TABLET (FP) PO SCH (10:00)
== END 2021-06-12 19:10 | disposition home or self-care (01) ==
LOC: JER 07:15 → JERBED 10:51 → UNDOADMIN 10:51 → JASUSAT 13:35
PROVIDERS: ATTEND Internal Medicine
PROC: 0TB68ZX Excision of Right Ureter, Via Natural or Artificial Opening Endoscopic, Diagnostic (ICD-10-PCS; principal; 2021-06-12 14:00)
PROC: BT1DYZZ Fluoroscopy of Right Kidney, Ureter and Bladder using Other Contrast (ICD-10-PCS; 2021-06-12 14:00)
PROC: 0T9680Z Drainage of Right Ureter with Drainage Device, Via Natural or Artificial Opening Endoscopic (ICD-10-PCS; 2021-06-12 14:00)
DX: N28.89 Other specified disorders of kidney and ureter (principal)
CPT/HCPCS: 36415; 71046-TC-FY; 76000-TC-FY; 80053; 81003; 85025; 85610; 85730; 86850; 86900; 86901; 87086; 88305-TC; 93005; 93010; 94760; 99285-25; C9803; U0003; U0005

== ENCOUNTER 2022-03-13 16:55 | Emergency (ER) | payer OTHER ==
[2022-03-13 17:14] VITALS: BP 131/83; PULSE 104; RESP 19; TEMP 98.2; BMI 17.2
[2022-03-13 19:49] LABS: EOS % 2.4 % (0-4.5); HEMATOCRIT 44.5 % (35.4-49); HEMOGLOBIN 15.3 GM/dL (11.7-16.9); LYMPH % 44.7 % (8-40); MCH 36.2 pg (25.7-33.7); MCHC 34.5 g/dl (32.0-35.9); MONO % 11.9 % (3.8-10.2); RBC 4.24 M/mm3 (4.00-5.60); RDW 16.8 % (11.9-15.9); WHITE BLOOD COUNT 3.8 K/mm3 (4.0-10.0)
[2022-03-13 19:50] LABS: EPI CELLS 13 /uL (0-25.1); HYALINE CASTS 3 /uL (0-3.1); URINE APPEARANCE CLEAR; URINE BACTERIA 12 /uL (0-1359); URINE BILIRUBIN 1+ (NEGATIVE); URINE COLOR DK YELLOW; URINE GLUCOSE (UA) NEGATIVE (NEGATIVE); URINE KETONE TRACE (NEGATIVE); URINE LEUK ESTERASE 1+ (NEGATIVE); URINE NITRITE NEGATIVE (NEGATIVE); URINE PROTEIN 2+ (NEGATIVE); URINE RBC 24 /uL (0-23.9); URINE WBC 59 /uL (0-25.8)
[2022-03-13 19:56] LABS: INR 0.94 (0.83-1.09); PROTHROMBIN TIME (PATIENT) 10.8 SEC (9.7-13.0)
[2022-03-13 20:02] LABS: CALCIUM 9.2 mg/dL (8.5-10.1)
[2022-03-13 20:03] LABS: ALBUMIN 4.1 g/dl (3.4-5.0); BLOOD UREA NITROGEN 11.9 mg/dL (7-18)
[2022-03-13 20:06] LABS: CREATININE 0.7 mg/dL (0.55-1.3)
[2022-03-13 20:07] LABS: BILIRUBIN,TOTAL 0.9 mg/dL (0.2-1); TOT PROT 8.1 g/dl (6.4-8.2)
[2022-03-13 20:11] LABS: N-TERMINAL BNP 14.4 pg/ml (5-125)
[2022-03-13 20:52] LABS: ANISOCYTOSIS 1+; MACROCYTOSIS 1+
[2022-03-13 20:56] LABS: MEAN PLT VOLUME 9.6 fl (7.5-11.1); PLATELET COUNT 135 10^3/uL (134-434)
== END 2022-03-13 23:09 | disposition home or self-care (01) ==
LOC: JER 16:55
DX: F10.920 Alcohol use, unspecified with intoxication, uncomplicated (principal)
CPT/HCPCS: 36415; 80053; 80307; 81003; 83690; 83880; 84484; 85025; 85610; 85730; 86850; 86900; 86901; 87086; 99283-25

== ENCOUNTER 2022-03-20 11:56 | Inpatient (IN) | payer OTHER ==
[2022-03-20 12:22] VITALS: BMI 18.2
[2022-03-20] MEDS ORDERED: TRIMETHOBENZAMIDE HCL 200MG/2ML INJ IM ONE (12:37)
[2022-03-20] MEDS ORDERED: MAGNESIUM HYDROX 2400MG/30ML ORAL SUSPENSION 30 ML CUP PO PRN (13:12)
[2022-03-20] MEDS ORDERED: ACETAMINOPHEN 325 MG TABLET (FP) PO PRN ×2 (13:12)
[2022-03-20] MEDS ORDERED: BISMUTH SUBSALICYLATE 524 MG/30 ML PO PRN (13:12)
[2022-03-20] MEDS ORDERED: MAGNESIUM CITRATE 300 ML BOTTLE PO PRN (13:12)
[2022-03-20] MEDS ORDERED: BENZOCAINE/MENTHOL (CHLORASEPTIC ) LOZENGE MM PRN (13:12)
[2022-03-20] MEDS ORDERED: DICYCLOMINE HCL 10 MG CAPSULE PO PRN (13:12)
[2022-03-20] MEDS ORDERED: NICOTINE 10 MG CARTRIDGE (INHALER) IH PRN (13:12)
[2022-03-20] MEDS ORDERED: LOPERAMIDE HCL 2 MG CAPSULE PO PRN (13:12)
[2022-03-20] MEDS ORDERED: NALOXONE HCL (KLOXXADO) 8 MG SPRAY NS PRN (13:12)
[2022-03-20] MEDS ORDERED: IBUPROFEN 400 MG TABLET (FP) PO PRN (13:12)
[2022-03-20] MEDS ORDERED: ONDANSETRON *ODT* 4 MG TABLET SL PRN (13:12)
[2022-03-20] MEDS ORDERED: MAG HYDROX/AL HYDROX/SIMETH 30 ML UNIT-DOSE CUP PO PRN (13:12)
[2022-03-20] MEDS ORDERED: IBUPROFEN 600 MG TABLET (FP) PO PRN (13:12)
[2022-03-20] MEDS: FINASTERIDE 5 MG TABLET (FP) PO SCH (15:28)
[2022-03-20] MEDS: THIAMINE HCL 100 MG TABLET (FP) PO SCH ×2 (15:28→22:16)
[2022-03-20] MEDS: PRENATAL VITAMINS W/ FOLIC ACID TABLET (FP) PO SCH (15:29)
[2022-03-20] MEDS: NICOTINE 14 MG/24 HOURS TOPICAL PATCH TD SCH (15:29)
[2022-03-20] MEDS: TAMSULOSIN HCL 0.4 MG CAP PO SCH (15:29)
[2022-03-20] MEDS: BUDESONIDE/FORMETEROL FUMARATE 160/4.5 mcg INHALER IH SCH ×3 (15:31→22:16)
[2022-03-20] MEDS ORDERED: TUBERCULIN PPD 5 TU/0.1ML VIAL ID ONE (15:31)
[2022-03-20] MEDS: ALBUTEROL SO4 HFA INHALER IH PRN (15:34)
[2022-03-20 16:24] LABS: HEMATOCRIT 43.8 % (35.4-49); HEMOGLOBIN 14.8 GM/dL (11.7-16.9); MCH 35.7 pg (25.7-33.7); MCHC 33.8 g/dl (32.0-35.9); MEAN CELL VOLUME 105.9 fl (80-96); MEAN PLT VOLUME 9.9 fl (7.5-11.1); PLATELET COUNT 113 10^3/uL (134-434); RBC 4.14 M/mm3 (4.00-5.60); RDW 15.6 % (11.9-15.9); WHITE BLOOD COUNT 3.4 K/mm3 (4.0-10.0)
[2022-03-20 16:37] LABS: BLOOD UREA NITROGEN 11.6 mg/dL (7-18); CALCIUM 9.4 mg/dL (8.5-10.1)
[2022-03-20 16:40] LABS: CREATININE 0.7 mg/dL (0.55-1.3)
[2022-03-20 16:42] LABS: BILIRUBIN,TOTAL 0.8 mg/dL (0.2-1); TOT PROT 7.9 g/dl (6.4-8.2)
[2022-03-20] MEDS: MELATONIN 5 MG TABLETS PO SCH (22:15)
[2022-03-21] MEDS: hydrOXYzine PAMOATE 25 MG CAPSULE (FP) PO PRN (06:25)
[2022-03-21] MEDS: METHOCARBAMOL 500 MG TABLET PO PRN (06:25)
[2022-03-21] MEDS ORDERED: cloNIDine HCL 0.1 MG TABLET PO ONE (07:32)
[2022-03-21] MEDS ORDERED: LORazepam 1 MG TABLET PO PRN (09:36)
[2022-03-21] MEDS: NICOTINE 14 MG/24 HOURS TOPICAL PATCH TD SCH (10:17)
[2022-03-21] MEDS: BUDESONIDE/FORMETEROL FUMARATE 160/4.5 mcg INHALER IH SCH ×4 (10:17→22:45)
[2022-03-21] MEDS: PRENATAL VITAMINS W/ FOLIC ACID TABLET (FP) PO SCH (10:17)
[2022-03-21] MEDS: ALBUTEROL SO4 HFA INHALER IH PRN (10:17)
[2022-03-21] MEDS: FINASTERIDE 5 MG TABLET (FP) PO SCH (10:17)
[2022-03-21] MEDS: THIAMINE HCL 100 MG TABLET (FP) PO SCH ×2 (10:19→22:45)
[2022-03-21] MEDS: LORazepam 2 MG TABLET PO SCH ×3 (10:19→22:43)
[2022-03-21] MEDS: POTASSIUM CHLORIDE ORAL LIQUID 20 MEQ/15 ML PO SCH ×2 (10:19→22:45)
[2022-03-21] MEDS: TAMSULOSIN HCL 0.4 MG CAP PO SCH (10:29)
[2022-03-21] MEDS: MELATONIN 5 MG TABLETS PO SCH (22:44)
[2022-03-22] MEDS: LORazepam 2 MG TABLET PO SCH ×4 (05:48→23:00)
[2022-03-22] MEDS: ALBUTEROL SO4 HFA INHALER IH PRN ×3 (07:49→13:43)
[2022-03-22] MEDS: TAMSULOSIN HCL 0.4 MG CAP PO SCH (10:27)
[2022-03-22] MEDS: THIAMINE HCL 100 MG TABLET (FP) PO SCH ×2 (10:27→22:59)
[2022-03-22] MEDS: FINASTERIDE 5 MG TABLET (FP) PO SCH (10:27)
[2022-03-22] MEDS: POTASSIUM CHLORIDE ORAL LIQUID 20 MEQ/15 ML PO SCH ×2 (10:27→22:59)
[2022-03-22] MEDS: NICOTINE 14 MG/24 HOURS TOPICAL PATCH TD SCH (10:27)
[2022-03-22] MEDS: BUDESONIDE/FORMETEROL FUMARATE 160/4.5 mcg INHALER IH SCH ×4 (10:28→23:00)
[2022-03-22] MEDS: PRENATAL VITAMINS W/ FOLIC ACID TABLET (FP) PO SCH (10:28)
[2022-03-22 11:20] LABS: ALBUMIN 4.1 g/dl (3.4-5.0); CALCIUM 9.9 mg/dL (8.5-10.1)
[2022-03-22 11:22] LABS: BLOOD UREA NITROGEN 14.3 mg/dL (7-18); CREATININE 0.7 mg/dL (0.55-1.3)
[2022-03-22 11:24] LABS: BILIRUBIN,TOTAL 1.6 mg/dL (0.2-1)
[2022-03-22] MEDS: MELATONIN 5 MG TABLETS PO SCH (22:59)
[2022-03-23] MEDS: LORazepam 1 MG TABLET PO SCH ×4 (06:11→22:38)
[2022-03-23] MEDS: METHOCARBAMOL 500 MG TABLET PO PRN (06:13)
[2022-03-23] MEDS: hydrOXYzine PAMOATE 25 MG CAPSULE (FP) PO PRN (06:13)
[2022-03-23] MEDS: BUDESONIDE/FORMETEROL FUMARATE 160/4.5 mcg INHALER IH SCH ×4 (10:10→22:39)
[2022-03-23] MEDS: ALBUTEROL SO4 HFA INHALER IH PRN (10:10)
[2022-03-23] MEDS: PRENATAL VITAMINS W/ FOLIC ACID TABLET (FP) PO SCH (10:11)
[2022-03-23] MEDS: FINASTERIDE 5 MG TABLET (FP) PO SCH (10:11)
[2022-03-23] MEDS: POTASSIUM CHLORIDE ORAL LIQUID 20 MEQ/15 ML PO SCH ×2 (10:11→22:38)
[2022-03-23] MEDS: TAMSULOSIN HCL 0.4 MG CAP PO SCH (10:11)
[2022-03-23] MEDS: LACTULOSE 20 GM/30 ML UDC (FOR ORAL USE ONLY) PO SCH ×4 (10:12→22:38)
[2022-03-23] MEDS: NICOTINE 14 MG/24 HOURS TOPICAL PATCH TD SCH (10:12)
[2022-03-23] MEDS: THIAMINE HCL 100 MG TABLET (FP) PO SCH ×2 (10:13→22:38)
[2022-03-23] MEDS: MELATONIN 5 MG TABLETS PO SCH (22:39)
[2022-03-24] MEDS ORDERED: LORazepam 0.5 MG TABLET PO PRN
[2022-03-24] MEDS: LORazepam 0.5 MG TABLET PO SCH ×4 (05:35→22:01)
[2022-03-24] MEDS: PRENATAL VITAMINS W/ FOLIC ACID TABLET (FP) PO SCH (10:53)
[2022-03-24] MEDS: TAMSULOSIN HCL 0.4 MG CAP PO SCH (10:54)
[2022-03-24] MEDS: BUDESONIDE/FORMETEROL FUMARATE 160/4.5 mcg INHALER IH SCH ×4 (10:54→22:00)
[2022-03-24] MEDS: FINASTERIDE 5 MG TABLET (FP) PO SCH (10:54)
[2022-03-24] MEDS: NICOTINE 14 MG/24 HOURS TOPICAL PATCH TD SCH (10:55)
[2022-03-24] MEDS: THIAMINE HCL 100 MG TABLET (FP) PO SCH ×2 (10:55→22:02)
[2022-03-24] MEDS: LACTULOSE 20 GM/30 ML UDC (FOR ORAL USE ONLY) PO SCH ×4 (10:57→22:02)
[2022-03-24] MEDS: MELATONIN 5 MG TABLETS PO SCH (22:02)
[2022-03-25] MEDS ORDERED: LORazepam 0.5 MG TABLET PO ONE (05:00)
[2022-03-25] MEDS: TAMSULOSIN HCL 0.4 MG CAP PO SCH (10:59)
[2022-03-25] MEDS: BUDESONIDE/FORMETEROL FUMARATE 160/4.5 mcg INHALER IH SCH ×4 (10:59→22:31)
[2022-03-25] MEDS: LACTULOSE 20 GM/30 ML UDC (FOR ORAL USE ONLY) PO SCH ×4 (10:59→22:29)
[2022-03-25] MEDS: FINASTERIDE 5 MG TABLET (FP) PO SCH (10:59)
[2022-03-25] MEDS: PRENATAL VITAMINS W/ FOLIC ACID TABLET (FP) PO SCH (11:00)
[2022-03-25] MEDS: NICOTINE 14 MG/24 HOURS TOPICAL PATCH TD SCH (11:00)
[2022-03-25] MEDS: THIAMINE HCL 100 MG TABLET (FP) PO SCH ×2 (11:11→22:29)
[2022-03-25] MEDS: MELATONIN 5 MG TABLETS PO SCH (22:29)
[2022-03-26 05:25] VITALS: TEMP 97.1
[2022-03-26] MEDS: FINASTERIDE 5 MG TABLET (FP) PO SCH (09:34)
[2022-03-26] MEDS: THIAMINE HCL 100 MG TABLET (FP) PO SCH (09:34)
[2022-03-26] MEDS: NICOTINE 14 MG/24 HOURS TOPICAL PATCH TD SCH (09:35)
[2022-03-26] MEDS: TAMSULOSIN HCL 0.4 MG CAP PO SCH (09:35)
[2022-03-26] MEDS: PRENATAL VITAMINS W/ FOLIC ACID TABLET (FP) PO SCH (09:35)
[2022-03-26] MEDS: BUDESONIDE/FORMETEROL FUMARATE 160/4.5 mcg INHALER IH SCH (09:35)
[2022-03-26] MEDS: ALBUTEROL SO4 HFA INHALER IH PRN (09:35)
[2022-03-26] MEDS: LACTULOSE 20 GM/30 ML UDC (FOR ORAL USE ONLY) PO SCH (09:36)
[2022-03-26 09:39] VITALS: BP 113/65; PULSE 76; RESP 16
[2022-03-26 14:04] LABS: ALBUMIN 3.6 g/dl (3.4-5.0); BLOOD UREA NITROGEN 20.8 mg/dL (7-18)
[2022-03-26 14:05] LABS: CALCIUM 9.1 mg/dL (8.5-10.1)
[2022-03-26 14:06] LABS: BILIRUBIN,TOTAL 1.2 mg/dL (0.2-1); CREATININE 0.8 mg/dL (0.55-1.3); TOT PROT 7.3 g/dl (6.4-8.2)
== END 2022-03-26 11:39 | disposition home or self-care (01) | DRG 897 ==
LOC: YASAS 11:56 → Y3N 13:20
PROVIDERS: ADMIT Allergy & Immunology; ATTEND Surgery
PROC: HZ2ZZZZ Detoxification Services for Substance Abuse Treatment (ICD-10-PCS; principal; 2022-03-20)
DX: F10.230 Alcohol dependence with withdrawal, uncomplicated (principal); E72.20 Disorder of urea cycle metabolism, unspecified; F17.210 Nicotine dependence, cigarettes, uncomplicated; D69.6 Thrombocytopenia, unspecified; E87.6 Hypokalemia; J44.9 Chronic obstructive pulmonary disease, unspecified; R74.8 Abnormal levels of other serum enzymes; Z20.822 Contact with and (suspected) exposure to COVID-19
CPT/HCPCS: 36415; 80053; 82140; 84450; 84460; 85027; 86780; 87811; 93005; 93010; C9803-CS; U0003; U0005

== ENCOUNTER 2023-04-17 18:58 | Inpatient (IN) | payer OTHER ==
[2023-04-17 20:25] VITALS: BMI 22.3
[2023-04-17] MEDS ORDERED: ALBUTEROL SO4 HFA INHALER IH PRN (23:24)
[2023-04-17] MEDS ORDERED: BENZOCAINE/MENTHOL (CHLORASEPTIC ) LOZENGE MM PRN (23:30)
[2023-04-17] MEDS ORDERED: IBUPROFEN 400 MG TABLET (FP) PO PRN (23:30)
[2023-04-17] MEDS ORDERED: MAGNESIUM HYDROX 2400MG/30ML ORAL SUSPENSION 30 ML CUP PO PRN (23:30)
[2023-04-17] MEDS ORDERED: DICYCLOMINE HCL 10 MG CAPSULE PO PRN (23:30)
[2023-04-17] MEDS ORDERED: POLYETHYLENE GLYCOL (HEALTHYLAX) 3350 17 GM PACKET PO PRN (23:30)
[2023-04-17] MEDS ORDERED: NICOTINE POLACRILEX 2 MG GUM BUC PRN (23:30)
[2023-04-17] MEDS ORDERED: hydrOXYzine PAMOATE 25 MG CAPSULE (FP) PO PRN (23:30)
[2023-04-17] MEDS ORDERED: LOPERAMIDE HCL 2 MG CAPSULE PO PRN (23:30)
[2023-04-17] MEDS ORDERED: ONDANSETRON *ODT* 4 MG TABLET SL PRN (23:30)
[2023-04-17] MEDS ORDERED: BENZONATATE 200 MG CAPSULE PO PRN (23:30)
[2023-04-17] MEDS ORDERED: MAG HYDROX/AL HYDROX/SIMETH 30 ML UNIT-DOSE CUP PO PRN (23:30)
[2023-04-17] MEDS ORDERED: BISMUTH SUBSALICYLATE 524 MG/30 ML PO PRN (23:30)
[2023-04-17] MEDS ORDERED: guaiFENesin 600 MG TABLET.ER (FP) PO PRN (23:30)
[2023-04-17] MEDS ORDERED: P-EPHED 60MG/TRIPROLIDI 2.5MG TABLET PO PRN (23:30)
[2023-04-18] MEDS: BUDESONIDE/FORMETEROL FUMARATE 160/4.5 mcg INHALER IH SCH ×3 (03:02→22:28)
[2023-04-18] MEDS ORDERED: ALBUTEROL SO4 HFA INHALER IH PRN (09:35)
[2023-04-18] MEDS: PRENATAL VITAMINS W/ FOLIC ACID TABLET (FP) PO SCH (10:26)
[2023-04-18] MEDS: chlordiazePOXIDE HCL 25 MG CAPSULE PO SCH ×3 (10:27→22:25)
[2023-04-18 14:57] LABS: HEMATOCRIT 40.3 % (35.4-49); HEMOGLOBIN 13.8 GM/dL (11.7-16.9); MCH 35.7 pg (25.7-33.7); MCHC 34.3 g/dl (32.0-35.9); MEAN CELL VOLUME 104.2 fl (80-96); PLATELET COUNT 150 10^3/uL (134-434); RBC 3.87 M/mm3 (4.00-5.60); RDW 14.8 % (11.9-15.9); WHITE BLOOD COUNT 5.7 K/mm3 (4.0-10.0)
[2023-04-18 15:19] LABS: CHLORIDE 100 mmol/L (98-107); POTASSIUM 3.7 mmol/L (3.5-5.1); SODIUM 137 mmol/L (136-145)
[2023-04-18 15:22] LABS: ALBUMIN 3.7 g/dl (3.4-5.0); ANION GAP 6 mmol/L (4-13); BLOOD UREA NITROGEN 10.4 mg/dL (7-18); CALCIUM 9.3 mg/dL (8.5-10.1); CO2 31 mmol/L (21-32)
[2023-04-18 15:25] LABS: SGOT/AST 158 U/L (15-37)
[2023-04-18 15:27] LABS: BILIRUBIN,TOTAL 1.4 mg/dL (0.2-1); TOT PROT 7.2 g/dl (6.4-8.2)
[2023-04-18 15:28] LABS: ALK PHOS 78 U/L (45-117)
[2023-04-18] MEDS: chlordiazePOXIDE HCL 25 MG CAPSULE PO PRN (15:53)
[2023-04-18 17:09] LABS: GLUCOSE,RANDOM 156 mg/dL (74-106)
[2023-04-18 17:17] LABS: CREATININE 0.8 mg/dL (0.55-1.3); SGPT/ALT 95 U/L (13-61)
[2023-04-18] MEDS ORDERED: LISINOPRIL 5 MG TABLET PO ONE (19:00)
[2023-04-18] MEDS ORDERED: THIAMINE HCL 100 MG TABLET (FP) PO SCH (22:00)
[2023-04-18] MEDS ORDERED: MELATONIN 5 MG TABLETS PO SCH (22:00)
[2023-04-19] MEDS: chlordiazePOXIDE HCL 25 MG CAPSULE PO SCH ×2 (06:00→10:08)
[2023-04-19] MEDS: chlordiazePOXIDE HCL 25 MG CAPSULE PO PRN ×2 (08:04→13:31)
[2023-04-19 09:20] VITALS: RESP 16
[2023-04-19] MEDS: PRENATAL VITAMINS W/ FOLIC ACID TABLET (FP) PO SCH (10:08)
[2023-04-19] MEDS: BUDESONIDE/FORMETEROL FUMARATE 160/4.5 mcg INHALER IH SCH (10:08)
[2023-04-19 17:09] VITALS: BP 112/73; PULSE 101; TEMP 97.7
[2023-04-20] MEDS ORDERED: chlordiazePOXIDE HCL 25 MG CAPSULE PO SCH (05:00)
[2023-04-21] MEDS ORDERED: chlordiazePOXIDE HCL 10 MG CAPSULE PO PRN
[2023-04-21] MEDS ORDERED: chlordiazePOXIDE HCL 10 MG CAPSULE PO SCH (05:00)
[2023-04-22] MEDS ORDERED: chlordiazePOXIDE HCL 10 MG CAPSULE PO SCH (05:00)
[2023-04-23] MEDS ORDERED: chlordiazePOXIDE HCL 10 MG CAPSULE PO ONE (05:00)
== END 2023-04-19 17:17 | disposition left against medical advice (07) | DRG 894 ==
LOC: YASAS 18:58 → Y6N 04-18 01:59 → Y3N 04-18 06:32
PROVIDERS: ADMIT Allergy & Immunology; ATTEND Surgery
PROC: HZ2ZZZZ Detoxification Services for Substance Abuse Treatment (ICD-10-PCS; principal; 2023-04-18)
DX: F10.230 Alcohol dependence with withdrawal, uncomplicated (principal); F17.210 Nicotine dependence, cigarettes, uncomplicated; I10 Essential (primary) hypertension; J44.9 Chronic obstructive pulmonary disease, unspecified
CPT/HCPCS: 36415; 80053; 80305; 80307; 83036; 85027; 86780; 87635; 87811

== ENCOUNTER 2024-03-09 17:37 | Inpatient (IN) | payer OTHER ==
[2024-03-09 19:58] VITALS: BMI 20.1
[2024-03-09] MEDS ORDERED: MAGNESIUM HYDROX 2400MG/30ML ORAL SUSPENSION 30 ML CUP PO PRN (20:15)
[2024-03-09] MEDS ORDERED: P-EPHED 60MG/TRIPROLIDI 2.5MG TABLET PO PRN (20:15)
[2024-03-09] MEDS ORDERED: IBUPROFEN 400 MG TABLET (FP) PO PRN (20:15)
[2024-03-09] MEDS ORDERED: BISMUTH SUBSALICYLATE 524 MG/30 ML PO PRN (20:15)
[2024-03-09] MEDS ORDERED: NICOTINE POLACRILEX 2 MG GUM BUC PRN (20:15)
[2024-03-09] MEDS ORDERED: LOPERAMIDE HCL 2 MG CAPSULE PO PRN (20:15)
[2024-03-09] MEDS ORDERED: ACETAMINOPHEN 325 MG TABLET (FP) PO PRN (20:15)
[2024-03-09] MEDS ORDERED: BENZOCAINE/MENTHOL (CHLORASEPTIC ) LOZENGE MM PRN (20:15)
[2024-03-09] MEDS ORDERED: ONDANSETRON *ODT* 4 MG TABLET SL PRN (20:15)
[2024-03-09] MEDS ORDERED: POLYETHYLENE GLYCOL (HEALTHYLAX) 3350 17 GM PACKET PO PRN (20:15)
[2024-03-09] MEDS ORDERED: BENZONATATE 200 MG CAPSULE PO PRN (20:15)
[2024-03-09] MEDS ORDERED: guaiFENesin 600 MG TABLET.ER (FP) PO PRN (20:15)
[2024-03-09] MEDS ORDERED: IBUPROFEN 600 MG TABLET (FP) PO PRN (20:15)
[2024-03-09] MEDS ORDERED: MAG HYDROX/AL HYDROX/SIMETH 30 ML UNIT-DOSE CUP PO PRN (20:15)
[2024-03-09] MEDS ORDERED: NICOTINE POLACRILEX 2 MG LOZENGE BC PRN (20:15)
[2024-03-09] MEDS ORDERED: DICYCLOMINE HCL 10 MG CAPSULE PO PRN (20:15)
[2024-03-09] MEDS ORDERED: ALBUTEROL SO4 2.5/IPRATROPIUM 0.5 INH SOL 3 ML VIAL.NEB. NEB ONE (22:32)
[2024-03-09] MEDS ORDERED: MELATONIN 5 MG TABLETS ONE (22:32)
[2024-03-09] MEDS: THIAMINE 100 MG TABLET PO SCH (22:42)
[2024-03-09] MEDS: MELATONIN 5 MG TABLETS PO SCH (22:42)
[2024-03-09] MEDS: ALBUTEROL SO4 2.5/IPRATROPIUM 0.5 INH SOL 3 ML VIAL.NEB. NEB SCH (22:42)
[2024-03-09] MEDS: BUDESONIDE/FORMETEROL FUMARATE 160/4.5 mcg INHALER IH SCH (22:50)
[2024-03-10] MEDS ORDERED: ALBUTEROL SO4 2.5/IPRATROPIUM 0.5 INH SOL 3 ML VIAL.NEB. NEB ONE (08:37)
[2024-03-10] MEDS ORDERED: chlordiazePOXIDE HCL 25 MG CAPSULE PO PRN (08:53)
[2024-03-10] MEDS ORDERED: PRENATAL VITAMINS W/ FOLIC ACID TABLET (FP) PO ONE (09:41)
[2024-03-10] MEDS ORDERED: METOPROLOL TARTRATE 25 MG TABLET (FP) ONE (09:41)
[2024-03-10] MEDS: PRENATAL VITAMINS W/ FOLIC ACID TABLET (FP) PO SCH (09:42)
[2024-03-10] MEDS: METOPROLOL TARTRATE 25 MG TABLET (FP) PO ONE (09:42)
[2024-03-10] MEDS ORDERED: chlordiazePOXIDE HCL 25 MG CAPSULE ONE (10:15)
[2024-03-10] MEDS: chlordiazePOXIDE HCL 25 MG CAPSULE PO SCH (10:17)
[2024-03-10] MEDS ORDERED: IPRATROPIUM/ALBUTEROL (COMBIVENT) RESPIMAT 20-100 MCG IH SCH (12:30)
[2024-03-10 14:52] LABS: HEMATOCRIT 44.3 % (35.4-49); HEMOGLOBIN 15.4 GM/dL (11.7-16.9); MCH 34.3 pg (25.7-33.7); MCHC 34.7 g/dl (32.0-35.9); MEAN CELL VOLUME 98.8 fl (80-96); MEAN PLT VOLUME 9.4 fl (7.5-11.1); PLATELET COUNT 122 10^3/uL (134-434); RBC 4.48 M/mm3 (4.00-5.60); RDW 17.9 % (11.9-15.9); WHITE BLOOD COUNT 7.1 K/mm3 (4.0-10.0)
[2024-03-10 15:02] LABS: POTASSIUM 4.1 mmol/L (3.5-5.1)
[2024-03-10 15:08] LABS: ALBUMIN 4.4 g/dl (3.4-5.0); CALCIUM 10.4 mg/dL (8.5-10.1)
[2024-03-10 15:09] LABS: BLOOD UREA NITROGEN 21.1 mg/dL (7-18)
[2024-03-10 15:11] LABS: BILIRUBIN,TOTAL 1.4 mg/dL (0.2-1)
[2024-03-10 15:12] LABS: CREATININE 0.8 mg/dL (0.55-1.3); TOT PROT 8.1 g/dl (6.4-8.2)
[2024-03-11] MEDS: IPRATROPIUM/ALBUTEROL (COMBIVENT) RESPIMAT 20-100 MCG IH SCH (09:54)
[2024-03-11] MEDS: ALBUTEROL SO4 HFA INHALER IH PRN (09:55)
[2024-03-11] MEDS: LORazepam 2 MG TABLET PO SCH (17:01)
[2024-03-12] MEDS ORDERED: chlordiazePOXIDE HCL 25 MG CAPSULE PO SCH (05:00)
[2024-03-12 15:26] LABS: POTASSIUM 3.7 mmol/L (3.5-5.1)
[2024-03-12 15:30] LABS: CALCIUM 9.9 mg/dL (8.5-10.1)
[2024-03-12 15:31] LABS: ALBUMIN 3.7 g/dl (3.4-5.0); BLOOD UREA NITROGEN 20.3 mg/dL (7-18)
[2024-03-12 15:34] LABS: BILIRUBIN,TOTAL 1.2 mg/dL (0.2-1); CREATININE 0.7 mg/dL (0.55-1.3); TOT PROT 6.8 g/dl (6.4-8.2)
[2024-03-12] MEDS: LORazepam 1 MG TABLET PO PRN (22:02)
[2024-03-13] MEDS ORDERED: LORazepam 0.5 MG TABLET PO PRN
[2024-03-13] MEDS ORDERED: chlordiazePOXIDE HCL 10 MG CAPSULE PO PRN
[2024-03-13] MEDS ORDERED: chlordiazePOXIDE HCL 10 MG CAPSULE PO SCH (05:00)
[2024-03-13] MEDS: LORazepam 1 MG TABLET PO SCH (05:25)
[2024-03-14] MEDS ORDERED: chlordiazePOXIDE HCL 10 MG CAPSULE PO SCH (05:00)
[2024-03-14] MEDS: LORazepam 0.5 MG TABLET PO SCH (05:43)
[2024-03-14 09:38] VITALS: BP 118/88; PULSE 93; RESP 18; TEMP 97.8
[2024-03-15] MEDS ORDERED: chlordiazePOXIDE HCL 10 MG CAPSULE PO ONE (05:00)
== END 2024-03-14 11:19 | disposition home or self-care (01) | DRG 775 ==
LOC: YASAS 17:37 → Y6N 03-10 08:50
PROVIDERS: ADMIT Allergy & Immunology; ATTEND Surgery
PROC: HZ2ZZZZ Detoxification Services for Substance Abuse Treatment (ICD-10-PCS; principal; 2024-03-10)
DX: F10.230 Alcohol dependence with withdrawal, uncomplicated (principal); F10.220 Alcohol dependence with intoxication, uncomplicated; F17.220 Nicotine dependence, chewing tobacco, uncomplicated; F41.9 Anxiety disorder, unspecified; F32.A Depression, unspecified; J44.9 Chronic obstructive pulmonary disease, unspecified
CPT/HCPCS: 36415; 71045-TC-FY; 80053; 80305; 85027; 86780; 93005; 93010; 94640; J3535

== ENCOUNTER 2025-02-17 18:27 | Inpatient (IN) | payer OTHER ==
[2025-02-17] MEDS ORDERED: ALBUTEROL SO4 2.5/IPRATROPIUM 0.5 INH SOL 3 ML VIAL.NEB. NEB ONE (19:06)
[2025-02-17 19:44] LABS: BG HCT 49.0 % (35.4-49); VENOUS BASE EXCESS 4.1 mmol/L (-2-2); VENOUS O2 SATURATION 60.2 % (70-80); VENOUS PCO2 60.8 mmHg (38-52); VENOUS PH 7.339 (7.310-7.410)
[2025-02-17] MEDS: ALBUTEROL SO4 2.5/IPRATROPIUM 0.5 INH SOL 3 ML VIAL.NEB. NEB SCH (19:45)
[2025-02-17 19:47] LABS: ABSOLUTE IMMATURE GRANULOCYTES 0.02 x10^3/uL (0.0-0.031); BASOPHILS # 0.05 x10^3/uL (0.01-0.08); EOSINOPHIL % 1.1 % (0.8-7.0); EOSINOPHILS # 0.07 x10^3/uL (0.04-0.54); MCHC 34.5 g/dl (32.3-36.5); MEAN CELL VOLUME 94.4 fl (79.0-92.2); MEAN PLT VOLUME 11.0 fl (9.4-12.4); MONOCYTE # 0.92 x10^3/uL (0.30-0.82); MONOCYTE % 14.0 % (5.3-12.2); RDW 19.2 % (12.2-16.4)
[2025-02-17] MEDS ORDERED: THIAMINE HCL 200 MG/2 ML VIAL ONE (19:47)
[2025-02-17] MEDS ORDERED: methylPREDNISolone NA SUCC 125 MG/2 ML VIAL ONE ×3 (19:47→20:01)
[2025-02-17 20:03] LABS: INR 0.94 (0.83-1.09); PROTHROMBIN TIME (PATIENT) 10.2 SEC (9.7-13.0)
[2025-02-17 20:05] LABS: ACTIVATED PTT 29.4 SECONDS (25.2-36.5)
[2025-02-17] MEDS: THIAMINE HCL 200 MG/2 ML VIAL IVPB ONE (20:08)
[2025-02-17] MEDS: methylPREDNISolone NA SUCC 125 MG/2 ML VIAL IVPUSH ONE (20:08)
[2025-02-17 20:19] LABS: GLUCOSE,RANDOM 106 mg/dL (74-106)
[2025-02-17 20:20] LABS: TOT PROT 9.7 g/dl (6.4-8.2)
[2025-02-17 20:21] LABS: CO2 29 mmol/L (21-32)
[2025-02-17 20:22] LABS: ALK PHOS 78 U/L (40-150)
[2025-02-17 20:25] LABS: SGOT/AST 244 U/L (5-34); SGPT/ALT 151 U/L (0-55)
[2025-02-17 20:26] LABS: CREATININE 0.44 mg/dL (0.55-1.3)
[2025-02-17] MEDS ORDERED: ALBUTEROL SO4 0.083% IH SOL 2.5 MG/3 ML VIAL.NEB. NEB ONE ×2 (20:57→21:40)
[2025-02-17] MEDS: ALBUTEROL SO4 0.083% IH SOL 2.5 MG/3 ML VIAL.NEB. NEB ONE (21:23)
[2025-02-17] MEDS: ALBUTEROL SO4 0.083% IH SOL 2.5 MG/3 ML VIAL.NEB. NEB SCH (21:43)
[2025-02-17 21:52] LABS: GLUCOSE,RANDOM 109.0 mg/dL (74-106)
[2025-02-17 21:53] LABS: CO2 25.0 mmol/L (21-32)
[2025-02-17 21:57] LABS: CREATININE 0.44 mg/dL (0.55-1.3)
[2025-02-17 22:34] LABS: HIV INTERPRETATION NEGATIVE (NEGATIVE)
[2025-02-17 22:35] LABS: HCV DIAGNOSTIC IN-HOUSE W/RFLX NON-REACTIVE (NONREACTIVE)
[2025-02-17] MEDS ORDERED: MAGNESIUM SULFATE IN WATER 2 GM/50 ML IVPB IVPB ONE (22:56)
[2025-02-17] MEDS: MAGNESIUM SULF 50% (8.12 MEQ/2 ML-1 GM VIAL) IVPB ONE (23:05)
[2025-02-18] MEDS: DEXTROSE 5%-NORMAL SALINE 1,000 ML IV SCH (00:46)
[2025-02-18] MEDS: methylPREDNISolone NA SUCC 40 MG/1 ML VIAL IVPUSH SCH (02:32)
[2025-02-18] MEDS ORDERED: hydrOXYzine PAMOATE 25 MG CAPSULE (FP) PO PRN (04:29)
[2025-02-18] MEDS ORDERED: TRIMETHOBENZAMIDE HCL 200MG/2ML INJ IM PRN (04:42)
[2025-02-18] MEDS ORDERED: MAG HYDROX/AL HYDROX/SIMETH 30 ML UNIT-DOSE CUP PO PRN (04:42)
[2025-02-18] MEDS ORDERED: ACETAMINOPHEN 500 MG TABLET (FP) PO PRN (05:49)
[2025-02-18] MEDS: ALBUTEROL SO4 2.5/IPRATROPIUM 0.5 INH SOL 3 ML VIAL.NEB. NEB SCH (07:51)
[2025-02-18] MEDS: LOSARTAN POTASSIUM 50 MG TABLET PO SCH (09:08)
[2025-02-18] MEDS: THIAMINE 100 MG TABLET PO SCH (09:08)
[2025-02-18] MEDS: MULTIVITAMINS (DAILY MVI) TABLET (FP) PO SCH (09:08)
[2025-02-18] MEDS: FOLIC ACID 1 MG TABLET (FP) PO SCH (09:08)
[2025-02-18] MEDS: ENOXAPARIN NA (PORCINE) 40 MG/0.4 ML DISP.SYRIN SQ SCH (09:09)
[2025-02-18] MEDS: NICOTINE 21 MG/24 HOURS TOPICAL PATCH TD SCH (09:09)
[2025-02-18] MEDS: MINERAL OIL/PETROLAT/WATER TOPICAL CREAM 113 GM JAR TP SCH (12:30)
[2025-02-18 13:04] LABS: GLUCOSE,RANDOM 154.0 mg/dL (74-106)
[2025-02-18 13:05] LABS: TOT PROT 7.8 g/dl (6.4-8.2)
[2025-02-18 13:06] LABS: CO2 29.0 mmol/L (21-32)
[2025-02-18 13:07] LABS: ALK PHOS 84.0 U/L (40-150)
[2025-02-18 13:10] LABS: CREATININE 0.55 mg/dL (0.55-1.3); SGOT/AST 186.0 U/L (5-34); SGPT/ALT 149.0 U/L (0-55)
[2025-02-18] MEDS: AZITHROMYCIN IVPB 500 MG/250 ML BAG IVPB SCH (15:04)
[2025-02-18 15:12] VITALS: BMI 17.3
[2025-02-19] MEDS: ALBUTEROL SO4 2.5/IPRATROPIUM 0.5 INH SOL 3 ML VIAL.NEB. NEB PRN (00:19)
[2025-02-19 08:42] LABS: MCHC 34.6 g/dl (32.3-36.5); MEAN CELL VOLUME 92.9 fl (79.0-92.2); MEAN PLT VOLUME 10.7 fl (9.4-12.4); RDW 19.3 % (12.2-16.4)
[2025-02-19 09:27] LABS: GLUCOSE,RANDOM 147.0 mg/dL (74-106); TOT PROT 6.4 g/dl (6.4-8.2)
[2025-02-19 09:28] LABS: CO2 27.0 mmol/L (21-32)
[2025-02-19 09:30] LABS: ALK PHOS 72.0 U/L (40-150)
[2025-02-19 09:32] LABS: SGPT/ALT 103.0 U/L (0-55)
[2025-02-19 09:33] LABS: CREATININE 0.55 mg/dL (0.55-1.3); SGOT/AST 107.0 U/L (5-34)
[2025-02-19] MEDS: guaiFENesin/D-METHORPHAN HB 10 ML UNIT-DOSE CUPS PO PRN (11:24)
[2025-02-19] MEDS: LOPERAMIDE HCL 2 MG CAPSULE PO PRN (11:24)
[2025-02-20] MEDS ORDERED: ALBUTEROL SO4 HFA INHALER IH PRN (11:09)
[2025-02-22 08:47] LABS: ABSOLUTE IMMATURE GRANULOCYTES 0.04 x10^3/uL (0.0-0.031); BASOPHILS # 0.02 x10^3/uL (0.01-0.08); EOSINOPHIL % 0.0 % (0.8-7.0); EOSINOPHILS # 0.00 x10^3/uL (0.04-0.54); MCHC 34.0 g/dl (32.3-36.5); MEAN CELL VOLUME 94.0 fl (79.0-92.2); MEAN PLT VOLUME 10.9 fl (9.4-12.4); MONOCYTE # 0.44 x10^3/uL (0.30-0.82); MONOCYTE % 4.8 % (5.3-12.2); RDW 19.0 % (12.2-16.4)
[2025-02-22 09:26] LABS: GLUCOSE,RANDOM 156.0 mg/dL (74-106)
[2025-02-22 09:27] LABS: TOT PROT 6.4 g/dl (6.4-8.2)
[2025-02-22 09:28] LABS: CO2 24.0 mmol/L (21-32)
[2025-02-22 09:29] LABS: ALK PHOS 81.0 U/L (40-150)
[2025-02-22 09:32] LABS: CREATININE 0.59 mg/dL (0.55-1.3); SGOT/AST 122.0 U/L (5-34); SGPT/ALT 216.0 U/L (0-55)
[2025-02-23 08:18] LABS: ABSOLUTE IMMATURE GRANULOCYTES 0.09 x10^3/uL (0.0-0.031); BASOPHILS # 0.01 x10^3/uL (0.01-0.08); EOSINOPHIL % 0.0 % (0.8-7.0); EOSINOPHILS # 0.00 x10^3/uL (0.04-0.54); MCHC 34.0 g/dl (32.3-36.5); MEAN CELL VOLUME 94.2 fl (79.0-92.2); MEAN PLT VOLUME 10.9 fl (9.4-12.4); MONOCYTE # 0.79 x10^3/uL (0.30-0.82); MONOCYTE % 8.4 % (5.3-12.2); RDW 18.9 % (12.2-16.4)
[2025-02-23 08:48] LABS: GLUCOSE,RANDOM 142.0 mg/dL (74-106)
[2025-02-23 08:49] LABS: CO2 27.0 mmol/L (21-32)
[2025-02-23 08:51] LABS: ALK PHOS 64.0 U/L (40-150)
[2025-02-23 08:54] LABS: CREATININE 0.53 mg/dL (0.55-1.3); SGOT/AST 71.0 U/L (5-34); SGPT/ALT 155.0 U/L (0-55)
[2025-02-23 09:16] LABS: TOT PROT 5.6 g/dl (6.4-8.2)
[2025-02-23] MEDS: methylPREDNISolone NA SUCC 40 MG/1 ML VIAL IVPUSH SCH (21:22)
[2025-02-24 07:04] VITALS: RESP 18
[2025-02-24 09:23] VITALS: BP 118/83; PULSE 84; TEMP 97.7
== END 2025-02-24 15:46 | disposition home or self-care (01) | DRG 191 ==
LOC: JER 18:27 → JERBED 23:04 → OBSVTOIN 23:04 → J7W 02-18 01:58
PROVIDERS: ADMIT Internal Medicine; ATTEND Internal Medicine
PROC: HZ2ZZZZ Detoxification Services for Substance Abuse Treatment (ICD-10-PCS; principal; 2025-02-17)
DX: J44.9 Chronic obstructive pulmonary disease, unspecified (principal); E46 Unspecified protein-calorie malnutrition; F10.239 Alcohol dependence with withdrawal, unspecified; Z68.1 Body mass index [BMI] 19.9 or less, adult; R64 Cachexia; F17.210 Nicotine dependence, cigarettes, uncomplicated; N20.0 Calculus of kidney
CPT/HCPCS: 36415; 71046-TC-FY; 71250-TC; 76705-TC; 80048; 80053; 82140; 82803; 83735; 84100; 84132; 84484; 85025; 85610; 85730; 86803; 87389; 87637-QW; 93005; 93010; 93306-TC; 94640; 99285-25